=== PATIENT | male | born 1980 | race Caucasian/White ===

== ENCOUNTER 2016-12-02 02:09 | Emergency (ER) | payer OTHER ==
[~2016-12-02 02:09] MED LIST: NORTRIPTYLINE H75 MG PO; OMEPRAZOLE20 M1 PO; PERCOCET1 TA1 PO; ZOFRAN ODT4 MG PO
--- NOTE | 2016-12-02 04:25 | ED ORDER SUMMARY ---
..... Patient: MEGHAN SABA OrderSheet [facility] VisitID: [id number] [place] [address] 36y, M Registration Date/Time: 12/02/2016 ORDER SHEET Weight: 88.4 kg (stated) Allergies: Codeine, Morphine and Related GENERAL ORDERS: MEDICATION ORDERS: EMLA Cream Topical 1 application (to base of glans penis) (03:19 12/02/2016 Arthur FITZGERALD) (Ack 3:24 JQuivey R.N.) (3:36 JQuivey R.N.) IV FLUIDS: Zofran IV 4 mg (NOW) (03:01 12/02/2016 JQuivey R.N. per protocol) (3:02 JQuivey R.N.) IV Saline Lock (03:12/02/2016 JQuivey R.N. per protocol) (3:01 JQuivey R.N.) Dilaudid IV 2 mg (HIGH ALERT MEDICATION, NOW) (03:18 12/02/2016 Arthur FITZGERALD) (Ack 3:24 JQuivey R.N.) (3:35 JQuivey R.N.) Toradol IV 30 mg (NOW) (03:18 12/02/2016 Arthur FITZGERALD) (Ack 3:24 JQuivey R.N.) (3:35 JQuivey R.N.) Dilaudid IV 1 mg (HIGH ALERT MEDICATION, NOW) (04:27 12/02/2016 Arthur FITZGERALD) (4:31 JQuivey R.N.) ORDER SHEET NOTES: [Electronically signed by Sandoval Romero R.N. (05:31 12/02/2016)] [Electronically signed by Ange Fletcher MD (21:40 12/06/2016)] [Electronically locked/signed by Sandoval Romero R.N. (05:12/02/2016)]
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
--- NOTE | 2016-12-02 04:25 | ED ORDER SUMMARY ---
..... Patient: MEGHAN SABA OrderSheet [facility] VisitID: [id number] [place] [address] 36y, M Registration Date/Time: 12/02/2016 ORDER SHEET Weight: 88.4 kg (stated) Allergies: Codeine, Morphine and Related GENERAL ORDERS: MEDICATION ORDERS: EMLA Cream Topical 1 application (to base of glans penis) (03:19 12/02/2016 Arthur FITZGERALD) (Ack 3:24 JQuivey R.N.) (3:36 JQuivey R.N.) IV FLUIDS: Zofran IV 4 mg (NOW) (03:01 12/02/2016 JQuivey R.N. per protocol) (3:02 JQuivey R.N.) IV Saline Lock (03:12/02/2016 JQuivey R.N. per protocol) (3:01 JQuivey R.N.) Dilaudid IV 2 mg (HIGH ALERT MEDICATION, NOW) (03:18 12/02/2016 Arthur FITZGERALD) (Ack 3:24 JQuivey R.N.) (3:35 JQuivey R.N.) Toradol IV 30 mg (NOW) (03:18 12/02/2016 Arthur FITZGERALD) (Ack 3:24 JQuivey R.N.) (3:35 JQuivey R.N.) Dilaudid IV 1 mg (HIGH ALERT MEDICATION, NOW) (04:27 12/02/2016 Arthur FITZGERALD) (4:31 JQuivey R.N.) ORDER SHEET NOTES: [Electronically signed by Sandoval Romero R.N. (05:31 12/02/2016)] [Electronically signed by Ange Fletcher MD (21:40 12/06/2016)] [Electronically locked/signed by Sandoval Romero R.N. (05:12/02/2016)]
--- NOTE | 2016-12-06 21:41 | ED MAR SUMMARY ---
..... Medication Administration Record [facility] [address] [place] [address] Patient: MEGHAN SABA Visit ID: [id number] 36y, M Weight: 88.4 kg Height/Length: 76 in BMI: 23.7 ALLERGIES: Morphine and Related, Codeine Given 03:00 12/02/2016 Sandoval Romero R.N. Medication Administered: ZOFRAN [IVP] (ONDANSETRON HCL), Dose: 4 mg IVP over 2 minute(s), Site: #1 right AC. Medication Ordered: Zofran IV 4 mg (NOW). Given 03:30 12/02/2016 Sandoval Romero R.N. Medication Administered: DILAUDID [IVP] (HYDROMORPHONE HCL PF), Dose: 2 mg IVP over 2 minute(s), Site: #1 right AC. Medication Ordered: Dilaudid IV 2 mg (HIGH ALERT MEDICATION, NOW). Given 03:32 12/02/2016 Sandoval Romero R.N. Medication Administered: TORADOL [IVP], Dose: 30 mg IVP over 2 minute(s), Site: #1 right AC. Medication Ordered: Toradol IV 30 mg (NOW). Given 03:35 12/02/2016 Sandoval Romero R.N. Medication Administered: EMLA CREAM [TOPICAL] (LIDOCAINE-PRILOCAINE), Dose: 1 application Topical. Medication Ordered: EMLA Cream Topical 1 application (to base of glans penis). Given 04:28 12/02/2016 Sandoval Romero R.NNimisha Medication Administered: DILAUDID [IVP] (HYDROMORPHONE HCL PF), Dose: 1 mg IVP over 2 minute(s), Site: #1 right AC. Medication Ordered: Dilaudid IV 1 mg (HIGH ALERT MEDICATION, NOW).
--- NOTE | 2016-12-06 21:41 | ED MED RECONCILIATION SUMMARY ---
Patient: MEGHAN SABA Medication Reconciliation Report [facility] VisitID: [id number] [address] [place] [address] 36y, M Registration Date/Time: 12/02/2016 Weight: 88.4 kg Height/Length: 76 in. BMI: 23.7 ALLERGIES: Codeine, Morphine and Related The patient's Home Medications are listed below: CONTINUE TAKING THE FOLLOWING MEDICATIONS: Nortriptyline HCl Oral 75 mg, daily Percocet Oral 5/325 mg, 4x a day The source(s) of the original Home Medication information: patient The following Medications were given to the patient in the Emergency Department: Zofran [IVP] IVP 4 mg, administered: 12/02/2016 3:00:00 AM Dilaudid [IVP] IVP 2 mg, administered: 12/02/2016 3:30:00 AM Toradol [IVP] IVP 30 mg, administered: 12/02/2016 3:32:00 AM EMLA Cream [Topical] Topical 1 application, administered: 12/02/2016 3:35:00 AM Dilaudid [IVP] IVP 1 mg, administered: 12/02/2016 4:28:00 AM The following Medications were prescribed to the patient: Zofran (orally disintegrating tablets) 4 mg: take 1-2 orally every 6 hours as needed for nausea. Dispense ten (10). No refill. Substitution is permissible. -- Ange Fletcher MD Hydromorphone 2 mg: take 1-2 tablets orally every 6 hours as needed for pain. Dispense twenty (20). No refill. -- Ange Fletcher MD
--- NOTE | 2016-12-06 21:41 | ED MAR SUMMARY ---
..... Medication Administration Record [facility] [address] [place] [address] Patient: MEGHAN SABA Visit ID: [id number] 36y, M Weight: 88.4 kg Height/Length: 76 in BMI: 23.7 ALLERGIES: Morphine and Related, Codeine Given 03:00 12/02/2016 Sandoval Romero R.N. Medication Administered: ZOFRAN [IVP] (ONDANSETRON HCL), Dose: 4 mg IVP over 2 minute(s), Site: #1 right AC. Medication Ordered: Zofran IV 4 mg (NOW). Given 03:30 12/02/2016 Sandoval Romero R.N. Medication Administered: DILAUDID [IVP] (HYDROMORPHONE HCL PF), Dose: 2 mg IVP over 2 minute(s), Site: #1 right AC. Medication Ordered: Dilaudid IV 2 mg (HIGH ALERT MEDICATION, NOW). Given 03:32 12/02/2016 Sandoval Romero R.N. Medication Administered: TORADOL [IVP], Dose: 30 mg IVP over 2 minute(s), Site: #1 right AC. Medication Ordered: Toradol IV 30 mg (NOW). Given 03:35 12/02/2016 Sandoval Romero R.N. Medication Administered: EMLA CREAM [TOPICAL] (LIDOCAINE-PRILOCAINE), Dose: 1 application Topical. Medication Ordered: EMLA Cream Topical 1 application (to base of glans penis). Given 04:28 12/02/2016 Sandoval Romero R.NNimisha Medication Administered: DILAUDID [IVP] (HYDROMORPHONE HCL PF), Dose: 1 mg IVP over 2 minute(s), Site: #1 right AC. Medication Ordered: Dilaudid IV 1 mg (HIGH ALERT MEDICATION, NOW).
--- NOTE | 2016-12-06 21:41 | ED DISCHARGE INSTRUCTIONS ---
Patient: MEGHAN SABA General Instructions [facility] VisitID: [id number] [place] [address] 36y, M Registration Date/Time: 12/02/2016 Post-operative complication from genitourinary surgery- partial wound dehiscence. INSTRUCTIONS Drink plenty of fluids. Warnings: Further evaluation is necessary. It is very important to follow up with a physician. SEDATIVE MEDICATION: You were given sedative medication during your visit. Do not drive or operate dangerous machinery for 8 hours. GENERAL WARNINGS: Return or contact your physician immediately if your condition worsens or changes unexpectedly, if not improving as expected, or if other problems arise. Your Current Medications: CONTINUE TAKING THE FOLLOWING MEDICATIONS: Nortriptyline HCl Oral : 75 mg daily. Percocet Oral : 5/325 mg 4x a day, prn. Prescription Medications: Zofran (orally disintegrating tablets) 4 mg: take 1-2 orally every 6 hours as needed for nausea. Dispense ten (10). No refill. Substitution is permissible. Hydromorphone 2 mg: take 1-2 tablets orally every 6 hours as needed for pain. Dispense twenty (20). No refill. Follow-up: Follow up with a urologist. Call for the next available appointment. Reason for referral: Follow up wound dehiscence at circumcision site. Understanding of the discharge instructions verbalized by patient. (Electronically signed by Ange Fletcher MD 12/06/2016 21:40)
--- NOTE | 2016-12-06 21:41 | ED DISCHARGE INSTRUCTIONS ---
Patient: MEGHAN SABA General Instructions [facility] VisitID: [id number] [place] [address] 36y, M Registration Date/Time: 12/02/2016 Post-operative complication from genitourinary surgery- partial wound dehiscence. INSTRUCTIONS Drink plenty of fluids. Warnings: Further evaluation is necessary. It is very important to follow up with a physician. SEDATIVE MEDICATION: You were given sedative medication during your visit. Do not drive or operate dangerous machinery for 8 hours. GENERAL WARNINGS: Return or contact your physician immediately if your condition worsens or changes unexpectedly, if not improving as expected, or if other problems arise. Your Current Medications: CONTINUE TAKING THE FOLLOWING MEDICATIONS: Nortriptyline HCl Oral : 75 mg daily. Percocet Oral : 5/325 mg 4x a day, prn. Prescription Medications: Zofran (orally disintegrating tablets) 4 mg: take 1-2 orally every 6 hours as needed for nausea. Dispense ten (10). No refill. Substitution is permissible. Hydromorphone 2 mg: take 1-2 tablets orally every 6 hours as needed for pain. Dispense twenty (20). No refill. Follow-up: Follow up with a urologist. Call for the next available appointment. Reason for referral: Follow up wound dehiscence at circumcision site. Understanding of the discharge instructions verbalized by patient. (Electronically signed by Ange Fletcher MD 12/06/2016 21:40)
--- NOTE | 2016-12-06 21:41 | ED MED RECONCILIATION SUMMARY ---
Patient: MEGHAN SABA Medication Reconciliation Report [facility] VisitID: [id number] [address] [place] [address] 36y, M Registration Date/Time: 12/02/2016 Weight: 88.4 kg Height/Length: 76 in. BMI: 23.7 ALLERGIES: Codeine, Morphine and Related The patient's Home Medications are listed below: CONTINUE TAKING THE FOLLOWING MEDICATIONS: Nortriptyline HCl Oral 75 mg, daily Percocet Oral 5/325 mg, 4x a day The source(s) of the original Home Medication information: patient The following Medications were given to the patient in the Emergency Department: Zofran [IVP] IVP 4 mg, administered: 12/02/2016 3:00:00 AM Dilaudid [IVP] IVP 2 mg, administered: 12/02/2016 3:30:00 AM Toradol [IVP] IVP 30 mg, administered: 12/02/2016 3:32:00 AM EMLA Cream [Topical] Topical 1 application, administered: 12/02/2016 3:35:00 AM Dilaudid [IVP] IVP 1 mg, administered: 12/02/2016 4:28:00 AM The following Medications were prescribed to the patient: Zofran (orally disintegrating tablets) 4 mg: take 1-2 orally every 6 hours as needed for nausea. Dispense ten (10). No refill. Substitution is permissible. -- Ange Fletcher MD Hydromorphone 2 mg: take 1-2 tablets orally every 6 hours as needed for pain. Dispense twenty (20). No refill. -- Ange Fletcher MD
== END 2016-12-02 04:54 | disposition home or self-care (01) ==
LOC: ED SRH 02:09
DX: T81.31XA Disruption of external operation (surgical) wound, not elsewhere classified, initial encounter (principal); W51.XXXA Accidental striking against or bumped into by another person, initial encounter; Y93.89 Activity, other specified; Y99.8 Other external cause status; Y92.003 Bedroom of unspecified non-institutional (private) residence as the place of occurrence of the external cause; I10 Essential (primary) hypertension; F17.200 Nicotine dependence, unspecified, uncomplicated; Z88.5 Allergy status to narcotic agent; Z79.899 Other long term (current) drug therapy

== ENCOUNTER 2017-01-07 23:36 | Emergency (ER) | payer OTHER ==
--- NOTE | 2017-01-08 00:56 | ED CLINICAL REPORT ---
Clinical Report - Physicians/Mid Levels [facility] [address] [place] [address] 01/07/2017 23:37 Patient: MEGHAN SABA Time Seen: 00:40 Jan 08 2017. Arrived- By private vehicle. Historian- patient. CPT: ER phys charges level 3 plus (#[id number]) (also dental block). HISTORY OF PRESENT ILLNESS Chief Complaint: DENTAL PAIN. 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 Pt states that molar has been giving him dental pain for several years.). Onset. (about 1 month ago). He has had a toothache (right upper molar). and is still present. Pain described as moderate. The patient has had toothache. Similar symptoms previously: Recent medical care: Not recently seen/assessed. REVIEW OF SYSTEMS No fever, cough, difficulty breathing, chest pain or nausea. No diarrhea, abdominal pain, difficulty with urination, headache or fainting episodes. No joint pain, skin rash or enlarged lymph nodes. All systems otherwise negative, except as recorded above. PAST HISTORY See nurses notes. Medications: Nortriptyline HCl Oral 75 mg, daily. [place] Oral (Tablet 5-325 mg) 1-2 tablet, every 6 hours (prn kidney stone pain). Allergies: Codeine. Definite Moderate(hives, itching) Morphine and Related. Definite Moderate(hives). SOCIAL HISTORY Heavy tobacco smoker (cigarette)- 1 pack per day. No alcohol use or drug use. ADDITIONAL NOTES The nursing notes have been reviewed. PHYSICAL EXAM Vital Signs: 01/07/2017 23:42 BP: 163/95. HR: 98. RR: 16. O2 saturation: 98%. Temp: 98.5 F. Pain level now: 9/10. Appearance: Alert. Head: Normal external inspection. Eyes: Pupils equal, round and reactive to light. Conjunctivae and eyelids normal. ENT: Moderate dental tenderness of a single tooth (upper right second molar). Ears normal. Nose normal. Pharynx normal. Lips normal. Gums normal. Uvula midline. Neck: Trachea midline. No adenopathy. CVS: Normal heart rate and rhythm. Heart sounds normal. Pulses normal. No cardiac murmur. Respiratory: No respiratory distress. Breath sounds normal. Chest nontender. Abdomen: Soft and nontender. Skin: Normal skin color. No rash. Extremities: Extremities exhibit normal ROM. Extremities nontender. Neuro: Oriented X 3. No motor deficit. No sensory deficit. PROGRESS AND PROCEDURES Dental Nerve Block: Inferior Alveolar Block. Procedure performed on the right side. Right upper molar(s). Landmarks were identified. Total volume of 1 mL 0.5% Marcaine infiltrated using a 30-gauge needle. Patient cooperative during procedure. No complications encountered. Excellent anesthesia achieved. Patient/family counseled. Disposition: Discharged. Condition: stable. CLINICAL IMPRESSION Severe dental pain. INSTRUCTIONS Drink plenty of fluids. Warnings: Further evaluation is necessary. GENERAL WARNINGS: Return or contact your physician immediately if your condition worsens or changes unexpectedly, if not improving as expected, or if other problems arise. Your Current Medications: STOP TAKING THE FOLLOWING MEDICATIONS: [place] Oral : Tablet 5-325 mg, 1-2 tablet every 6 hours, prn kidney stone pain. CONTINUE TAKING THE FOLLOWING MEDICATIONS: Nortriptyline HCl Oral : 75 mg daily. Prescription Medications: Penicillin V 500mg: take 1 tab orally every 6 hours for 10 days. Dispense forty (40). No refill Oxycodone/APAP 5 mg/325 mg: take 1-2 tablets orally every 4 hours as needed for pain. Dispense twenty-five (25). No refill. OTC Medications: Motrin (available over the counter): take according to label instructions. Follow-up: Follow up with a dentist. Call for the next available appointment. Understanding of the discharge instructions verbalized by patient. (Electronically signed by Leandro Vázquez MD 01/10/2017 10:02)
--- NOTE | 2017-01-08 00:56 | ED NURSING NOTES ---
Clinical Report - Nurses [facility] [address] [place] [address] 01/07/2017 23:37 Patient: MEGHAN SABA TRIAGE Acuity: LEVEL 3. Chief Complaint: RIGHT UPPER TOOTHACHE. Alert. AKUA COMA SCORE: Ak[place] Coma Scale: 15- eyes open spontaneously (4); best verbal response- oriented x 4 (5); best motor response- obeys commands (6). --23:53 Sandoval Parsons R.N. 23:42 01/07/17. BP: 163/95. HR: 98. RR: 16. O2 saturation: 98%. Temp: 98.5 F (oral). Pain level now: 07/07. Additional comments: Dental Pain. --23:53 Sandoval Parsons R.N. Weight: 90.7 kg stated. Height/Length: 76 inches Per Patient. BMI: 24.3. --23:44 Sandoval Parsons R.N. Medications [place] Oral (Tablet 5-325 mg) 1-2 tablet, every 6 hours (prn kidney stone pain). --23:45 Sandoval Parsons R.N. Nortriptyline HCl Oral 75 mg, daily. --23:47 Sandoval Parsons R.N. Allergies Morphine and Related. Definite Moderate(hives) --23:46 Sandoval Parsons R.N. Codeine. Definite Moderate(hives, itching) --23:47 Sandoval Parsons R.N. History ( (R) Upper Molar Pain. Pt states that molar has been giving him dental pain for several years.). Onset. (about 1 month ago). He has had a toothache (right upper molar). 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 PAST MEDICAL HX: Immunizations: status is unknown. SOCIAL HX: Heavy tobacco smoker (cigarette)- 1 pack per day. No alcohol use or drug use. No infectious disease exposure. ABUSE ASSESSMENT: No report of abuse. FALL RISK ASSESSMENT: Fall risk assessment completed. No fall risk identified. NUTRITIONAL RISK ASSESSMENT: The nutritional risk assessment revealed no deficiencies. FUNCTIONAL ASSESSMENT: Functional assessment: no impairments noted. LEARNING NEEDS ASSESSMENT: The learning needs assessment revealed no barriers. SKIN INTEGRITY ASSESSMENT: Skin integrity risk assessment completed. No skin integrity risk identified. --23:53 Sandoval Parsons R.N. PROBLEMS: Post-Op Complications. Hypertension. Renal Colic. Acute Pain. Abdominal Pain. Weakness. Nausea. Rotator Cuff Injury. Shoulder Injury. Back Pain. --23:49 Sandoval Parsons R.N. ADDITIONAL SURGERIES: Circumcision. Inguinal Hernia Repair. Shoulder Surgery. --23:49 Sandoval Parsons R.N. Interventions ID and allergy band on patient. To treatment room. --23:53 Sandoval Parsons R.N. PHYSICAL ASSESSMENT Ambulatory to room. GENERAL / NEURO / PSYCH: Alert. Oriented X 4. Appears in pain. HEENT: Voice within normal limits. Mouth within normal limits upon inspection. Mucous membranes are pink. RESPIRATORY: Respirations not labored. CVS: Capillary refill less than 2 seconds. SKIN: Skin is warm and dry. Normal skin turgor. --23:53 Sandoval Parsons R.N. NURSING PROGRESS NOTES Reassurance given to the patient. Patient identifiers checked. Call light placed in reach. Side rails up. Bed placed in lowest position. Brakes of bed on. Patient ready for evaluation- chart flagged and ED physician notified. --23:53 Sandoval Parsons R.N. 00:35. ( Dental Block by [facility]). --01:09 Sandoval Parsons R.N. DISPOSITION / DISCHARGE 00:55 01/08/17. BP: 168/98. HR: 100. RR: 16. O2 saturation: 99% on room air. Temp: 98.4 F (oral). Pain level now: 0/10. --01:06 Sandoval Parsons R.N. Departure time: 0100. --01:06 Sandoval Parsons R.N. 01:00. Condition at departure: improved. No learning barriers present. Discharge instructions provided and reviewed with the patient. Reviewed medication(s) (prescription given to pt). Reviewed referral to a dentist. Patient verbalized understanding. Written instructions provided in Kinyarwanda. The patient was discharged by the physician. He was discharged home and unaccompanied at time of discharge. He left the Emergency Department ambulatory and via private vehicle. Patient driving. --01:07 Sandoval Parsons R.N. Locked/Released at 01/08/2017 1:10 by Sandoval Parsons R.N.
--- NOTE | 2017-01-08 00:56 | ED NURSING NOTES ---
Clinical Report - Nurses [facility] [address] [place] [address] 01/07/2017 23:37 Patient: MEGHAN SABA TRIAGE Acuity: LEVEL 3. Chief Complaint: RIGHT UPPER TOOTHACHE. Alert. AKUA COMA SCORE: [place] Coma Scale: 15- eyes open spontaneously (4); best verbal response- oriented x 4 (5); best motor response- obeys commands (6). --23:53 Sandoval Parsons R.N. 23:42 01/07/17. BP: 163/95. HR: 98. RR: 16. O2 saturation: 98%. Temp: 98.5 F (oral). Pain level now: 07/07. Additional comments: Dental Pain. --23:53 Sandoval Parsons R.N. Weight: 90.7 kg stated. Height/Length: 76 inches Per Patient. BMI: 24.3. --23:44 Sandoval Parsons R.N. Medications [place] Oral (Tablet 5-325 mg) 1-2 tablet, every 6 hours (prn kidney stone pain). --23:45 Sandoval Parsons R.N. Nortriptyline HCl Oral 75 mg, daily. --23:47 Sandoval Parsons R.N. Allergies Morphine and Related. Definite Moderate(hives) --23:46 Sandoval Parsons R.N. Codeine. Definite Moderate(hives, itching) --23:47 Sandoval Parsons R.N. History ( (R) Upper Molar Pain. Pt states that molar has been giving him dental pain for several years.). Onset. (about 1 month ago). He has had a toothache (right upper molar). 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 PAST MEDICAL HX: Immunizations: status is unknown. SOCIAL HX: Heavy tobacco smoker (cigarette)- 1 pack per day. No alcohol use or drug use. No infectious disease exposure. ABUSE ASSESSMENT: No report of abuse. FALL RISK ASSESSMENT: Fall risk assessment completed. No fall risk identified. NUTRITIONAL RISK ASSESSMENT: The nutritional risk assessment revealed no deficiencies. FUNCTIONAL ASSESSMENT: Functional assessment: no impairments noted. LEARNING NEEDS ASSESSMENT: The learning needs assessment revealed no barriers. SKIN INTEGRITY ASSESSMENT: Skin integrity risk assessment completed. No skin integrity risk identified. --23:53 Sandoval Parsons R.N. PROBLEMS: Post-Op Complications. Hypertension. Renal Colic. Acute Pain. Abdominal Pain. Weakness. Nausea. Rotator Cuff Injury. Shoulder Injury. Back Pain. --23:49 Sandoval Parsons R.N. ADDITIONAL SURGERIES: Circumcision. Inguinal Hernia Repair. Shoulder Surgery. --23:49 Sandoval Parsons R.N. Interventions ID and allergy band on patient. To treatment room. --23:53 Sandoval Parsons R.N. PHYSICAL ASSESSMENT Ambulatory to room. GENERAL / NEURO / PSYCH: Alert. Oriented X 4. Appears in pain. HEENT: Voice within normal limits. Mouth within normal limits upon inspection. Mucous membranes are pink. RESPIRATORY: Respirations not labored. CVS: Capillary refill less than 2 seconds. SKIN: Skin is warm and dry. Normal skin turgor. --23:53 Sandoval Parsons R.N. NURSING PROGRESS NOTES Reassurance given to the patient. Patient identifiers checked. Call light placed in reach. Side rails up. Bed placed in lowest position. Brakes of bed on. Patient ready for evaluation- chart flagged and ED physician notified. --23:53 Sandoval Parsons R.N. 00:35. ( Dental Block by [facility]). --01:09 Sandoval Parsons R.N. DISPOSITION / DISCHARGE 00:55 01/08/17. BP: 168/98. HR: 100. RR: 16. O2 saturation: 99% on room air. Temp: 98.4 F (oral). Pain level now: 0/10. --01:06 Sandoval Parsons R.N. Departure time: 0100. --01:06 Sandoval Parosns R.N. 01:00. Condition at departure: improved. No learning barriers present. Discharge instructions provided and reviewed with the patient. Reviewed medication(s) (prescription given to pt). Reviewed referral to a dentist. Patient verbalized understanding. Written instructions provided in Azeri. The patient was discharged by the physician. He was discharged home and unaccompanied at time of discharge. He left the Emergency Department ambulatory and via private vehicle. Patient driving. --01:07 Sandoval Parsons R.N. Locked/Released at 01/08/2017 1:10 by Sandoval Parsons R.N.
--- NOTE | 2017-01-08 00:56 | ED CLINICAL REPORT ---
Clinical Report - Physicians/Mid Levels [facility] [address] [place] [address] 01/07/2017 23:37 Patient: MEGHAN SABA Time Seen: 00:40 Jan 08 2017. Arrived- By private vehicle. Historian- patient. CPT: ER phys charges level 3 plus (#141984) (also dental block). HISTORY OF PRESENT ILLNESS Chief Complaint: DENTAL PAIN. 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 Pt states that molar has been giving him dental pain for several years.). Onset. (about 1 month ago). He has had a toothache (right upper molar). and is still present. Pain described as moderate. The patient has had toothache. Similar symptoms previously: Recent medical care: Not recently seen/assessed. REVIEW OF SYSTEMS No fever, cough, difficulty breathing, chest pain or nausea. No diarrhea, abdominal pain, difficulty with urination, headache or fainting episodes. No joint pain, skin rash or enlarged lymph nodes. All systems otherwise negative, except as recorded above. PAST HISTORY See nurses notes. Medications: Nortriptyline HCl Oral 75 mg, daily. [place] Oral (Tablet 5-325 mg) 1-2 tablet, every 6 hours (prn kidney stone pain). Allergies: Codeine. Definite Moderate(hives, itching) Morphine and Related. Definite Moderate(hives). SOCIAL HISTORY Heavy tobacco smoker (cigarette)- 1 pack per day. No alcohol use or drug use. ADDITIONAL NOTES The nursing notes have been reviewed. PHYSICAL EXAM Vital Signs: 01/07/2017 23:42 BP: 163/95. HR: 98. RR: 16. O2 saturation: 98%. Temp: 98.5 F. Pain level now: 9/10. Appearance: Alert. Head: Normal external inspection. Eyes: Pupils equal, round and reactive to light. Conjunctivae and eyelids normal. ENT: Moderate dental tenderness of a single tooth (upper right second molar). Ears normal. Nose normal. Pharynx normal. Lips normal. Gums normal. Uvula midline. Neck: Trachea midline. No adenopathy. CVS: Normal heart rate and rhythm. Heart sounds normal. Pulses normal. No cardiac murmur. Respiratory: No respiratory distress. Breath sounds normal. Chest nontender. Abdomen: Soft and nontender. Skin: Normal skin color. No rash. Extremities: Extremities exhibit normal ROM. Extremities nontender. Neuro: Oriented X 3. No motor deficit. No sensory deficit. PROGRESS AND PROCEDURES Dental Nerve Block: Inferior Alveolar Block. Procedure performed on the right side. Right upper molar(s). Landmarks were identified. Total volume of 1 mL 0.5% Marcaine infiltrated using a 30-gauge needle. Patient cooperative during procedure. No complications encountered. Excellent anesthesia achieved. Patient/family counseled. Disposition: Discharged. Condition: stable. CLINICAL IMPRESSION Severe dental pain. INSTRUCTIONS Drink plenty of fluids. Warnings: Further evaluation is necessary. GENERAL WARNINGS: Return or contact your physician immediately if your condition worsens or changes unexpectedly, if not improving as expected, or if other problems arise. Your Current Medications: STOP TAKING THE FOLLOWING MEDICATIONS: [place] Oral : Tablet 5-325 mg, 1-2 tablet every 6 hours, prn kidney stone pain. CONTINUE TAKING THE FOLLOWING MEDICATIONS: Nortriptyline HCl Oral : 75 mg daily. Prescription Medications: Penicillin V 500mg: take 1 tab orally every 6 hours for 10 days. Dispense forty (40). No refill Oxycodone/APAP 5 mg/325 mg: take 1-2 tablets orally every 4 hours as needed for pain. Dispense twenty-five (25). No refill. OTC Medications: Motrin (available over the counter): take according to label instructions. Follow-up: Follow up with a dentist. Call for the next available appointment. Understanding of the discharge instructions verbalized by patient. (Electronically signed by Leandro Vázquez MD 01/10/2017 10:02)
--- NOTE | 2017-01-10 10:02 | ED MAR SUMMARY ---
..... Medication Administration Record [facility] [address] [place], [place] [id number] Patient: MEGHAN SABA Visit ID: [id number] 36y, M Weight: 90.7 kg Height/Length: 76 in BMI: 24.3 ALLERGIES: Codeine, Morphine and Related
--- NOTE | 2017-01-10 10:02 | ED MAR SUMMARY ---
..... Medication Administration Record [facility] [address] [place], [place] [id number] Patient: MEGHAN SABA Visit ID: [id number] 36y, M Weight: 90.7 kg Height/Length: 76 in BMI: 24.3 ALLERGIES: Codeine, Morphine and Related
--- NOTE | 2017-01-10 10:02 | ED DISCHARGE INSTRUCTIONS ---
Patient: MEGHAN SABA General Instructions [facility] VisitID: [id number] [address] [place] [address] 36y, M Registration Date/Time: 01/07/2017 Severe dental pain. INSTRUCTIONS Drink plenty of fluids. Warnings: Further evaluation is necessary. GENERAL WARNINGS: Return or contact your physician immediately if your condition worsens or changes unexpectedly, if not improving as expected, or if other problems arise. Your Current Medications: STOP TAKING THE FOLLOWING MEDICATIONS: [place] Oral : Tablet 5-325 mg, 1-2 tablet every 6 hours, prn kidney stone pain. CONTINUE TAKING THE FOLLOWING MEDICATIONS: Nortriptyline HCl Oral : 75 mg daily. Prescription Medications: Penicillin V 500mg: take 1 tab orally every 6 hours for 10 days. Dispense forty (40). No refill Oxycodone/APAP 5 mg/325 mg: take 1-2 tablets orally every 4 hours as needed for pain. Dispense twenty-five (25). No refill. OTC Medications: Motrin (available over the counter): take according to label instructions. Follow-up: Follow up with a dentist. Call for the next available appointment. Understanding of the discharge instructions verbalized by patient. ADDITIONAL INFORMATION Dental Pain A crack or cavity in the tooth, which exposes the sensitive inner area of the tooth can cause tooth pain. An infection in the gum or the root of the tooth can cause pain and swelling. The pain is often made worse by drinking hot or cold fluids, or biting on hard foods. Pain may spread from the tooth to the ear or jaw on the same side. Home Care: Avoid hot and cold foods and liquids since your tooth may be sensitive to temperature changes. If your tooth is chipped or cracked, or if there is a large open cavity, apply OIL OF CLOVES (available kzdb-gvq-njcdctr in drug stores) directly to the tooth to reduce pain. Some pharmacies carry an cgrw-pxd-qypyvwk "toothache kit." This contains a paste, which can be applied over the exposed tooth to decrease sensitivity. A cold pack on your jaw over the sore area may help reduce pain. You may use acetaminophen (Tylenol) or ibuprofen (Motrin, Advil) to control pain, unless another medicine was prescribed. [ NOTE: If you have chronic liver or kidney disease or ever had a stomach ulcer or GI bleeding, talk with your doctor before using these medicines.] If you have signs of an infection, an antibiotic will be given. Take it as directed. Follow-Up as directed with a dentist. Your pain may go away with the treatment given. However, only a dentist can fully evaluate and treat the cause and prevent the pain from coming back again. TOOTHACHE IS A SIGN OF DISEASE IN YOUR TOOTH AND SHOULD BE EXAMINED AND TREATED BY A DENTIST. Get Prompt Medical Attention if any of the following occur: Your face becomes swollen or red Pain worsens or spreads to the neck Fever over 100.4 F (38.0 C) Unusual drowsiness; headache or stiff neck; weakness or fainting Pus drains from the tooth Difficulty swallowing or breathing Dental Abscess A dental abscess is an infection of the tooth socket. It often starts with a crack or cavity in the tooth. A pocket of pus forms between the tooth and the bone. The infection causes pain and swelling of the gum, cheek or jaw. The pain is often made worse by drinking hot or cold fluids, or biting on hard foods. Pain may be felt in the facial sinus or in the ear. A severe infection can interfere with swallowing and breathing. In the emergency department or clinic, you will be started on an antibiotic. However, final treatment requires drainage of the pus. This can be done by removing the tooth or performing a root canal. A root canal is done by an oral surgeon and involves drilling an opening in the tooth to drain the pus. After the infection has healed, a crown is placed over the tooth. Home care The following guidelines will help you care for your abscess at home: Avoid hot and cold foods and liquids since your tooth may be sensitive to temperature changes. If your tooth is chipped or cracked, or if there is a large open cavity, applyoil of cloves(available dssw-yle-fmzqoas in drug stores) directly to the tooth to reduce pain. Some pharmacies carry an mkkb-cxj-ckzjatj "toothache kit". This contains oil of cloves and a paste, which can be applied over the exposed tooth to decrease sensitivity. Apply an ice pack (ice cubes in a plastic bag, wrapped in a towel) over the injured area for 20 minutes every 12 hours the first day for pain relief. Continue this 34 times a day until the pain and swelling goes away. You may use acetaminophen or ibuprofen to control pain, unless another medicine was prescribed. If you have chronic liver or kidney disease or ever had a stomach ulcer or GI bleeding, talk with your doctor before using these medicines. An antibiotic will be prescribed. Take it as directed until completed, even if you are feeling better sooner. Follow-up care Follow up as directed with a dentist or oral surgeon. Even though your pain may improve with the treatment given today, only a dentist or oral surgeon can provide full treatment for this problem. When to seek medical care Get prompt medical attention or contact your doctor if any of the following occur: Your face or eyelid becomes swollen or red Pain worsens or spreads to the neck Fever over 100.4F (38.0C) Unusual drowsiness; headache or stiff neck; weakness, or fainting Pus drains from the gum or tooth Difficulty talking, swallowing or breathing Unable to open your mouth wide Oxycodone Hydrochloride, Acetaminophen Oral tablet What is this medicine? ACETAMINOPHEN; OXYCODONE (a set a MADDISON raj fen; ox i KOE done) is a pain reliever. It is used to treat mild to moderate pain. How should I use this medicine? Take this medicine by mouth with a full glass of water. Follow the directions on the prescription label. Take your medicine at regular intervals. Do not take your medicine more often than directed. Talk to your yeast maker regarding the use of this medicine in children. Special care may be needed. Patients over 65 years old may have a stronger reaction and need a smaller dose. What side effects may I notice from receiving this medicine? Side effects that you should report to your doctor or health respiratory care practitioner as soon as possible: allergic reactions like skin rash, itching or hives, swelling of the face, lips, or tongue breathing difficulties, wheezing confusion light headedness or fainting spells severe stomach pain yellowing of the skin or the whites of the eyes Side effects that usually do not require medical attention (report to your doctor or health respiratory care practitioner if they continue or are bothersome): dizziness drowsiness nausea vomiting What may interact with this medicine? alcohol antihistamines barbiturates like amobarbital, butalbital, butabarbital, methohexital, pentobarbital, phenobarbital, thiopental, and secobarbital benztropine drugs for bladder problems like solifenacin, trospium, oxybutynin, tolterodine, hyoscyamine, and methscopolamine drugs for breathing problems like ipratropium and tiotropium drugs for certain stomach or intestine problems like propantheline, homatropine methylbromide, glycopyrrolate, atropine, belladonna, and dicyclomine general anesthetics like etomidate, ketamine, nitrous oxide, propofol, desflurane, enflurane, halothane, isoflurane, and sevoflurane medicines for depression, anxiety, or psychotic disturbances medicines for sleep muscle relaxants naltrexone narcotic medicines (opiates) for pain phenothiazines like perphenazine, thioridazine, chlorpromazine, mesoridazine, fluphenazine, prochlorperazine, promazine, and trifluoperazine scopolamine tramadol trihexyphenidyl What if I miss a dose? If you miss a dose, take it as soon as you can. If it is almost time for your next dose, take only that dose. Do not take double or extra doses. Where should I keep my medicine? Keep out of the reach of children. This medicine can be abused. Keep your medicine in a safe place to protect it from theft. Do not share this medicine with anyone. Selling or giving away this medicine is dangerous and against the law. Store at room temperature between 20 and 25 degrees C (68 and 77 degrees F). Keep container tightly closed. Protect from light. This medicine may cause accidental overdose and if it is taken by other adults, children, or pets. Flush any unused medicine down the toilet to reduce the chance of harm. Do not use the medicine after the expiration date. What should I tell my health care provider before I take this medicine? They need to know if you have any of these conditions: brain tumor Crohn's disease, inflammatory bowel disease, or ulcerative colitis drink more than 3 alcohol containing drinks per day drug abuse or addiction head injury heart or circulation problems kidney disease or problems going to the bathroom liver disease lung disease, asthma, or breathing problems an unusual or allergic reaction to acetaminophen, oxycodone, other opioid analgesics, other medicines, foods, dyes, or preservatives or trying to get breast-feeding What should I watch for while using this medicine? Tell your doctor or health respiratory care practitioner if your pain does not go away, if it gets worse, or if you have new or a different type of pain. You may develop tolerance to the medicine. Tolerance means that you will need a higher dose of the medication for pain relief. Tolerance is normal and is expected if you take this medicine for a long time. Do not suddenly stop taking your medicine because you may develop a severe reaction. Your body becomes used to the medicine. This does NOT mean you are addicted. Addiction is a behavior related to getting and using a drug for a non-medical reason. If you have pain, you have a medical reason to take pain medicine. Your doctor will tell you how much medicine to take. If your doctor wants you to stop the medicine, the dose will be slowly lowered over time to avoid any side effects. You may get drowsy or dizzy. Do not drive, use machinery, or do anything that needs mental alertness until you know how this medicine affects you. Do not stand or sit up quickly, especially if you are an older patient. This reduces the risk of dizzy or fainting spells. Alcohol may interfere with the effect of this medicine. Avoid alcoholic drinks. There are different types of narcotic medicines (opiates) for pain. If you take more than one type at the same time, you may have more side effects. Give your health care provider a list of all medicines you use. Your doctor will tell you how much medicine to take. Do not take more medicine than directed. Call emergency for help if you have problems breathing. The medicine will cause constipation. Try to have a bowel movement at least every 2 to 3 days. If you do not have a bowel movement for 3 days, call your doctor or health respiratory care practitioner. Do not take Tylenol (acetaminophen) or medicines that have acetaminophen with this medicine. Too much acetaminophen can be very dangerous. Many nonprescription medicines contain acetaminophen. Always read the labels carefully to avoid taking more acetaminophen. You have been given the following additional information: Dental Pain Tooth Abscess Oxycodone Hydrochloride, Acetaminophen Oral tablet (Electronically signed by Leandro Vázquez MD 01/10/2017 10:02)
--- NOTE | 2017-01-10 10:02 | ED DISCHARGE INSTRUCTIONS ---
Patient: MEGHAN SABA General Instructions [facility] VisitID: [id number] [address] [place] [address] 36y, M Registration Date/Time: 01/07/2017 Severe dental pain. INSTRUCTIONS Drink plenty of fluids. Warnings: Further evaluation is necessary. GENERAL WARNINGS: Return or contact your physician immediately if your condition worsens or changes unexpectedly, if not improving as expected, or if other problems arise. Your Current Medications: STOP TAKING THE FOLLOWING MEDICATIONS: [place] Oral : Tablet 5-325 mg, 1-2 tablet every 6 hours, prn kidney stone pain. CONTINUE TAKING THE FOLLOWING MEDICATIONS: Nortriptyline HCl Oral : 75 mg daily. Prescription Medications: Penicillin V 500mg: take 1 tab orally every 6 hours for 10 days. Dispense forty (40). No refill Oxycodone/APAP 5 mg/325 mg: take 1-2 tablets orally every 4 hours as needed for pain. Dispense twenty-five (25). No refill. OTC Medications: Motrin (available over the counter): take according to label instructions. Follow-up: Follow up with a dentist. Call for the next available appointment. Understanding of the discharge instructions verbalized by patient. ADDITIONAL INFORMATION Dental Pain A crack or cavity in the tooth, which exposes the sensitive inner area of the tooth can cause tooth pain. An infection in the gum or the root of the tooth can cause pain and swelling. The pain is often made worse by drinking hot or cold fluids, or biting on hard foods. Pain may spread from the tooth to the ear or jaw on the same side. Home Care: Avoid hot and cold foods and liquids since your tooth may be sensitive to temperature changes. If your tooth is chipped or cracked, or if there is a large open cavity, apply OIL OF CLOVES (available wqka-xut-rllnygm in drug stores) directly to the tooth to reduce pain. Some pharmacies carry an mnlm-gpd-grkzenb "toothache kit." This contains a paste, which can be applied over the exposed tooth to decrease sensitivity. A cold pack on your jaw over the sore area may help reduce pain. You may use acetaminophen (Tylenol) or ibuprofen (Motrin, Advil) to control pain, unless another medicine was prescribed. [ NOTE: If you have chronic liver or kidney disease or ever had a stomach ulcer or GI bleeding, talk with your doctor before using these medicines.] If you have signs of an infection, an antibiotic will be given. Take it as directed. Follow-Up as directed with a dentist. Your pain may go away with the treatment given. However, only a dentist can fully evaluate and treat the cause and prevent the pain from coming back again. TOOTHACHE IS A SIGN OF DISEASE IN YOUR TOOTH AND SHOULD BE EXAMINED AND TREATED BY A DENTIST. Get Prompt Medical Attention if any of the following occur: Your face becomes swollen or red Pain worsens or spreads to the neck Fever over 100.4 F (38.0 C) Unusual drowsiness; headache or stiff neck; weakness or fainting Pus drains from the tooth Difficulty swallowing or breathing Dental Abscess A dental abscess is an infection of the tooth socket. It often starts with a crack or cavity in the tooth. A pocket of pus forms between the tooth and the bone. The infection causes pain and swelling of the gum, cheek or jaw. The pain is often made worse by drinking hot or cold fluids, or biting on hard foods. Pain may be felt in the facial sinus or in the ear. A severe infection can interfere with swallowing and breathing. In the emergency department or clinic, you will be started on an antibiotic. However, final treatment requires drainage of the pus. This can be done by removing the tooth or performing a root canal. A root canal is done by an oral surgeon and involves drilling an opening in the tooth to drain the pus. After the infection has healed, a crown is placed over the tooth. Home care The following guidelines will help you care for your abscess at home: Avoid hot and cold foods and liquids since your tooth may be sensitive to temperature changes. If your tooth is chipped or cracked, or if there is a large open cavity, applyoil of cloves(available cngv-cez-lefkucc in drug stores) directly to the tooth to reduce pain. Some pharmacies carry an jhoa-fiu-jttvyte "toothache kit". This contains oil of cloves and a paste, which can be applied over the exposed tooth to decrease sensitivity. Apply an ice pack (ice cubes in a plastic bag, wrapped in a towel) over the injured area for 20 minutes every 12 hours the first day for pain relief. Continue this 34 times a day until the pain and swelling goes away. You may use acetaminophen or ibuprofen to control pain, unless another medicine was prescribed. If you have chronic liver or kidney disease or ever had a stomach ulcer or GI bleeding, talk with your doctor before using these medicines. An antibiotic will be prescribed. Take it as directed until completed, even if you are feeling better sooner. Follow-up care Follow up as directed with a dentist or oral surgeon. Even though your pain may improve with the treatment given today, only a dentist or oral surgeon can provide full treatment for this problem. When to seek medical care Get prompt medical attention or contact your doctor if any of the following occur: Your face or eyelid becomes swollen or red Pain worsens or spreads to the neck Fever over 100.4F (38.0C) Unusual drowsiness; headache or stiff neck; weakness, or fainting Pus drains from the gum or tooth Difficulty talking, swallowing or breathing Unable to open your mouth wide Oxycodone Hydrochloride, Acetaminophen Oral tablet What is this medicine? ACETAMINOPHEN; OXYCODONE (a set a MADDISON raj fen; ox i KOE done) is a pain reliever. It is used to treat mild to moderate pain. How should I use this medicine? Take this medicine by mouth with a full glass of water. Follow the directions on the prescription label. Take your medicine at regular intervals. Do not take your medicine more often than directed. Talk to your thermoforming operator regarding the use of this medicine in children. Special care may be needed. Patients over 65 years old may have a stronger reaction and need a smaller dose. What side effects may I notice from receiving this medicine? Side effects that you should report to your doctor or health adult care provider as soon as possible: allergic reactions like skin rash, itching or hives, swelling of the face, lips, or tongue breathing difficulties, wheezing confusion light headedness or fainting spells severe stomach pain yellowing of the skin or the whites of the eyes Side effects that usually do not require medical attention (report to your doctor or health adult care provider if they continue or are bothersome): dizziness drowsiness nausea vomiting What may interact with this medicine? alcohol antihistamines barbiturates like amobarbital, butalbital, butabarbital, methohexital, pentobarbital, phenobarbital, thiopental, and secobarbital benztropine drugs for bladder problems like solifenacin, trospium, oxybutynin, tolterodine, hyoscyamine, and methscopolamine drugs for breathing problems like ipratropium and tiotropium drugs for certain stomach or intestine problems like propantheline, homatropine methylbromide, glycopyrrolate, atropine, belladonna, and dicyclomine general anesthetics like etomidate, ketamine, nitrous oxide, propofol, desflurane, enflurane, halothane, isoflurane, and sevoflurane medicines for depression, anxiety, or psychotic disturbances medicines for sleep muscle relaxants naltrexone narcotic medicines (opiates) for pain phenothiazines like perphenazine, thioridazine, chlorpromazine, mesoridazine, fluphenazine, prochlorperazine, promazine, and trifluoperazine scopolamine tramadol trihexyphenidyl What if I miss a dose? If you miss a dose, take it as soon as you can. If it is almost time for your next dose, take only that dose. Do not take double or extra doses. Where should I keep my medicine? Keep out of the reach of children. This medicine can be abused. Keep your medicine in a safe place to protect it from theft. Do not share this medicine with anyone. Selling or giving away this medicine is dangerous and against the law. Store at room temperature between 20 and 25 degrees C (68 and 77 degrees F). Keep container tightly closed. Protect from light. This medicine may cause accidental overdose and if it is taken by other adults, children, or pets. Flush any unused medicine down the toilet to reduce the chance of harm. Do not use the medicine after the expiration date. What should I tell my health care provider before I take this medicine? They need to know if you have any of these conditions: brain tumor Crohn's disease, inflammatory bowel disease, or ulcerative colitis drink more than 3 alcohol containing drinks per day drug abuse or addiction head injury heart or circulation problems kidney disease or problems going to the bathroom liver disease lung disease, asthma, or breathing problems an unusual or allergic reaction to acetaminophen, oxycodone, other opioid analgesics, other medicines, foods, dyes, or preservatives or trying to get breast-feeding What should I watch for while using this medicine? Tell your doctor or health adult care provider if your pain does not go away, if it gets worse, or if you have new or a different type of pain. You may develop tolerance to the medicine. Tolerance means that you will need a higher dose of the medication for pain relief. Tolerance is normal and is expected if you take this medicine for a long time. Do not suddenly stop taking your medicine because you may develop a severe reaction. Your body becomes used to the medicine. This does NOT mean you are addicted. Addiction is a behavior related to getting and using a drug for a non-medical reason. If you have pain, you have a medical reason to take pain medicine. Your doctor will tell you how much medicine to take. If your doctor wants you to stop the medicine, the dose will be slowly lowered over time to avoid any side effects. You may get drowsy or dizzy. Do not drive, use machinery, or do anything that needs mental alertness until you know how this medicine affects you. Do not stand or sit up quickly, especially if you are an older patient. This reduces the risk of dizzy or fainting spells. Alcohol may interfere with the effect of this medicine. Avoid alcoholic drinks. There are different types of narcotic medicines (opiates) for pain. If you take more than one type at the same time, you may have more side effects. Give your health care provider a list of all medicines you use. Your doctor will tell you how much medicine to take. Do not take more medicine than directed. Call emergency for help if you have problems breathing. The medicine will cause constipation. Try to have a bowel movement at least every 2 to 3 days. If you do not have a bowel movement for 3 days, call your doctor or health adult care provider. Do not take Tylenol (acetaminophen) or medicines that have acetaminophen with this medicine. Too much acetaminophen can be very dangerous. Many nonprescription medicines contain acetaminophen. Always read the labels carefully to avoid taking more acetaminophen. You have been given the following additional information: Dental Pain Tooth Abscess Oxycodone Hydrochloride, Acetaminophen Oral tablet (Electronically signed by Leandro Vázquez MD 01/10/2017 10:02)
--- NOTE | 2017-01-10 10:02 | ED MED RECONCILIATION SUMMARY ---
Patient: MEGHAN SABA Medication Reconciliation Report [facility] VisitID: [id number] [address] [place] [address] 36y, M Registration Date/Time: 01/07/2017 Weight: 90.7 kg Height/Length: 76 in. BMI: 24.3 ALLERGIES: Codeine, Morphine and Related The patient's Home Medications are listed below: STOP TAKING THE FOLLOWING MEDICATIONS: [place] Oral (5-325 mg) 1-2 tablet, every 6 hours, prn kidney stone pain CONTINUE TAKING THE FOLLOWING MEDICATIONS: Nortriptyline HCl Oral 75 mg, daily The source(s) of the original Home Medication information: Not obtained. The following Medications were given to the patient in the Emergency Department: None. The following Medications were prescribed to the patient: Motrin (available over the counter): take according to label instructions. -- Leandro Vázquez MD Penicillin V 500mg: take 1 tab orally every 6 hours for 10 days. Dispense forty (40). No refill -- Leandro Vázquez MD Oxycodone/APAP 5 mg/325 mg: take 1-2 tablets orally every 4 hours as needed for pain. Dispense twenty-five (25). No refill. -- Leandro Vázquez MD
--- NOTE | 2017-01-10 10:02 | ED MED RECONCILIATION SUMMARY ---
Patient: MEGHAN SABA Medication Reconciliation Report [facility] VisitID: [id number] [address] [place] [address] 36y, M Registration Date/Time: 01/07/2017 Weight: 90.7 kg Height/Length: 76 in. BMI: 24.3 ALLERGIES: Codeine, Morphine and Related The patient's Home Medications are listed below: STOP TAKING THE FOLLOWING MEDICATIONS: [place] Oral (5-325 mg) 1-2 tablet, every 6 hours, prn kidney stone pain CONTINUE TAKING THE FOLLOWING MEDICATIONS: Nortriptyline HCl Oral 75 mg, daily The source(s) of the original Home Medication information: Not obtained. The following Medications were given to the patient in the Emergency Department: None. The following Medications were prescribed to the patient: Motrin (available over the counter): take according to label instructions. -- Leandro Vázquez MD Penicillin V 500mg: take 1 tab orally every 6 hours for 10 days. Dispense forty (40). No refill -- Leandro Vázquez MD Oxycodone/APAP 5 mg/325 mg: take 1-2 tablets orally every 4 hours as needed for pain. Dispense twenty-five (25). No refill. -- Leandro Vázquez MD
== END 2017-01-08 01:00 | disposition home or self-care (01) ==
LOC: ED SRH 23:36
DX: K08.89 Other specified disorders of teeth and supporting structures (principal); F17.210 Nicotine dependence, cigarettes, uncomplicated; Z79.891 Long term (current) use of opiate analgesic; Z79.899 Other long term (current) drug therapy; Z88.5 Allergy status to narcotic agent

== ENCOUNTER 2017-01-14 23:23 | Emergency (ER) | payer OTHER ==
--- NOTE | 2017-01-15 03:07 | ED CLINICAL REPORT ---
Clinical Report - Physicians/Mid Levels [facility] [address] [place] [address] 01/14/2017 23:23 Patient: MEGHAN SABA Time Seen: 01:39. Arrived- By private vehicle. Historian- patient. HISTORY OF PRESENT ILLNESS Chief Complaint: FLANK PAIN. At its maximum, severity described as severe. When seen in the E.D., it was almost gone. Modifying factors. Not worsened by change in position. Not worsened by anything. Not relieved by anything. This started 7 days ago, worse for the last several days.; Can't find a comfortable position. and is still present and worsening. It is described as "pain" and feels like prior kidney stone. and it is described as located in the right flank. No nausea, vomiting or diarrhea. (No incontinence, numbness or weakness.). Similar symptoms previously: Several times. ( Pt believes that it was L ureteral colic. Review of those visits shows only L intra renal stones.). REVIEW OF SYSTEMS No constipation, black stools, difficulty with urination, pain with urination or urinary frequency. No fever, headache, sore throat, chest pain or difficulty breathing. No cough. No scrotal pain. PAST HISTORY PCP: Dr Tamar Storm - appt next week. ADDITIONAL SURGERIES: Circumcision. Inguinal Hernia Repair. Shoulder Surgery. ADDITIONAL NOTES The nursing notes have been reviewed. PHYSICAL EXAM Vital Signs: 01/15/2017 03:00 BP: 151/90. HR: 93. RR: 20. O2 saturation: 97%. 01/15/2017 02:00 O2 saturation: 97%. 01/15/2017 01:20 BP: 159/88. HR: 98. RR: 15. O2 saturation: 99%. Temp: 98.6 F. Pain level now: 7/10. Appearance: Alert. No acute distress. Eyes: Eyes normal inspection. ENT: Pharynx normal. Neck: Normal inspection. CVS: Heart sounds normal. Respiratory: No respiratory distress. Breath sounds normal. Chest nontender. Abdomen: Soft and nontender. No mass. Back: Mild CVA tenderness on the right. : Normal genitalia. Testes descended. No tenderness present or scrotal swelling. Skin: Skin warm. Normal skin color. No rash. Extremities: Extremities exhibit normal ROM. No lower extremity edema. Neuro: Oriented X 3. No motor deficit. LABS, X-RAYS, AND EKG KUB: (No large R sided stone in urinary tract. /RR PROCEDURE: XR ABDOMEN 1 VIEW INDICATION: R FLANK PAIN TECHNIQUE: Single view supine abdomen. COMPARISON: CT 10/16/2016 FINDINGS: No free intraperitoneal air. Nonspecific, nonobstructive bowel gas pattern. No suspicious mass, mass effect, or calcifications. The visible osseous structures are intact. IMPRESSION: 1. Normal single view abdomen. 2. Specifically, no visible urinary calculi. Dictated by: ALEXANDRA TRENT MD D: HAL;01/15/1704 <Electronically signed by ALEXANDRA TRENT MD in OV> 01/15/17 0805). The X-rays were independently viewed by me and interpreted by the radiologist. Laboratory Tests: UA-Culture if indicated: (MAURI: 01/15/2017 02:25) ( MsgRcvd 01/15/2017 03:07) Final results Test Result Flag Units (Reference) URINE COLOR YELLOW URINE APPEARANCE CLEAR URINE GLUCOSE NEGATIVE (NEGATIVE) URINE BILIRUBIN NEGATIVE (NEGATIVE) URINE KETONE NEGATIVE (NEGATIVE) URINE SPECIFIC GRAVITY 1.010 (1.010-1.030) URINE PH 8.0 (5.0-8.0) URINE PROTEIN NEGATIVE (NEGATIVE) URINE UROBILINOGEN 0.2 EU/dL (0.2-1.0) URINE NITRITE NEGATIVE (NEGATIVE) URINE BLOOD NEGATIVE (NEGATIVE) URINE LEUK ESTERASE NEGATIVE (NEGATIVE) URINE RBC 0-1 rbc/hpf (0-1) URINE WBC 0-1 wbc/hpf (0-1) URINE EPITHELIAL CELLS 0-1 EPI/hpf (0-5) URINE BACTERIA NONE SEEN (NONE SEEN) URINE COMMENT CULT NOT INDICATED URINE CULTURES ARE SET-UP BASED ON THE FOLLOWING CRITERIA:POSITIVE NITRITEPOSITIVE LEUKOCYTE ESTERASEGREATER THAN 10 WHITE BLOOD CELLSMODERATE (2+) OR GREATER BACTERIA . PROGRESS AND PROCEDURES Course of Care: More likely musculoskeletal than renal colic though both are possible. No neurosurgical emergency no urologic emergency. Lack of worsening with movement does not support musculoskeletal etiology but there is not strong support of renal colic either. Disposition: Discharged. Condition: good. CLINICAL IMPRESSION Back pain. Possible renal colic. INSTRUCTIONS (I DID NOT SEE ANY LARGE R SIDED STONE I AM NOT SURE THAT THIS IS A KIDNEY STONE IMMEDIATE RECHECK FOR UNCONTROLLED PAIN OF TEMP OVER 100 TAKE IBUPROFEN OR SIMILAR ON A SCHEDULE KEEP YOUR APPOINTMENT WITH DR DONAHUE.). Prescription Medications: Oxycodone/APAP 5 mg/325 mg: take 1-2 tablets orally every 4 hours as needed for pain. Dispense fifteen (15). No refill. Flomax 0.4 mg: take 1 orally every 24 hours. Dispense fifteen (15). No refills. Substitution is permissible. (Electronically signed by Vivek Blood MD 01/15/2017 22:29)
--- NOTE | 2017-01-15 03:07 | ED ORDER SUMMARY ---
..... Patient: MEGHAN SABA OrderSheet [facility] VisitID: [id number] [address] [place] [address] 36y, M Registration Date/Time: 01/14/2017 ORDER SHEET Weight: 90.7 kg (stated) Allergies: Codeine, Morphine and Related GENERAL ORDERS: Abdomen 1V Urgent (02:06 01/15/2017 Kan FITZGERALD) (2:30 ALawrence ER Tech1) UA-Culture if indicated Urgent (02:56 01/15/2017 Kan FITZGERALD) (3:07 DDavis R.N.) MEDICATION ORDERS: Toradol IM 60 mg (NOW) (02:05 01/15/2017 Kan FITZGERALD) (Ack 2:06 RCollier R.N.) (2:32 RCollier R.N.) IV FLUIDS: Dilaudid IV 1 mg (NOW) (03:03 01/15/2017 Kan FITZGERALD) (Ack 3:08 DDavis R.N.) (3:17 DDavis R.N.) Zofran IV 4 mg (NOW) (03:03 01/15/2017 Kan FITZGERALD) (Ack 3:08 DDavis R.N.) (3:18 DDavis R.N.) ORDER SHEET NOTES: [Electronically signed by Edwardo sAh R.N. (03:30 01/15/2017)] [Electronically signed by Vivek Blood MD (22:29 01/15/2017)] [Electronically locked/signed by Edwardo Ash R.N. (03:30 01/15/2017)]
--- NOTE | 2017-01-15 03:07 | ED NURSING NOTES ---
Clinical Report - Nurses Merged With [facility] [address] [place] [address] 01/14/2017 23:23 Patient: MEGHAN SABA TRIAGE Triage time 01:20. Acuity: LEVEL 3. Chief Complaint: NAUSEA (right sided flank pain). Alert. No acute distress. --: Marely Colon R.N. 01:20 01/15/17. BP: 159/88. HR: 98. RR: 15. O2 saturation: 99%. Temp: 98.6 F (oral). Pain level now: 05/06. --: Marely Colon R.N. Weight: 90.7 kg stated. Height/Length: 76 inches Per Patient. BMI: 24.3. --: Marely Colon R.N. Medications Nortriptyline HCl Oral 75 mg, daily. --: Marely Colon R.N. Penicillin V Potassium Oral, , dental abcess . --: Marely Colon R.N. Allergies Codeine. Definite Moderate(hives, itching) Morphine and Related. Definite Moderate(hives) --: Marely Colon R.N. History Arrived by private vehicle. Historian: patient. Accompanied by (dropped off by aunt). Primary physician (Urologist- Vicente). Onset. (about 2 days ago). 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 (last dose about 2hrs MECHANICAL DETAILER). PAST MEDICAL HX: Immunizations: up-to-date. SOCIAL HX: Heavy tobacco smoker (cigarette)- less than 1 pack per day. No alcohol use or drug use. --: Marely Colon R.N. ADDITIONAL SURGERIES: Circumcision. Inguinal Hernia Repair. Shoulder Surgery. --: Marely Colon R.N. Interventions ID band on patient. To treatment room. --: Marely Colon R.N. PHYSICAL ASSESSMENT Ambulatory to room. Patient gowned. GENERAL / NEURO / PSYCH: Alert. Oriented X 4. Appears in no acute distress. RESPIRATORY: Respirations not labored. CVS: Capillary refill less than 2 seconds. SKIN: Skin is warm and dry. --01:25 Marely Colon R.N. GI / : ( pt states having kidney stones fro >3 weeks, and being diagnosed with them here.). --01:35 Edwardo Ash R.N. ( he states that his flank "kidney stone pain" got too severe, and promoted him to come in tonight). --01:36 Edwardo Ash R.N. NURSING PROGRESS NOTES Head of bed elevated. Two patient identifiers checked. Call light placed in reach. Side rails up x 1. Bed placed in lowest position. Brakes of bed on. --01:26 Marely Colon R.N. ( pt unable to give urine at this time.). --01:26 Marely Colon R.N. Patient ID band checked for patient name and birthdate: patient confirmed urine collected with return of yellow-colored clear urine; sample sent to lab. Specimen labeled in the presence of the patient. --02:32 Marely Colon R.N. 01:25 01/15/2017 Site #1 started via IV in the left antecubital space with an 20g angiocath; one attempt. Blood drawn: rainbow set. Labeled in the presence of the patient and sent to the lab. Saline lock flushed with saline. --03:17 Edwardo Ash R.N. 02:32 01/15/2017 Toradol (Ketorolac Tromethamine) IM 60 mg given. Given in the right ventral gluteus and left ventral gluteus (split dose). Allergies verified and confirmed 5 rights. --02:32 Marely Colon R.N. 03:14 01/15/2017 Dilaudid (HYDROmorphone HCl PF) IVP 1 mg given over 2 minute(s) via site #1. Allergies verified, confirmed 5 rights and sedative warning given to the patient. IV patency established. IV site checked: no pain, redness, or swelling. IV flushed thoroughly pre- and post-medication administration. --03:17 Edwardo Ash R.N. 03:15 01/15/2017 Zofran (Ondansetron HCl) IVP 4 mg given over 1 minute(s) via site #1. Allergies verified and confirmed 5 rights. IV patency established. IV site checked: no pain, redness, or swelling. IV flushed thoroughly pre- and post-medication administration. --03:18 Edwardo Ash R.N. 03:24 01/15/2017 Site #1 removed upon discharge. Manual pressure and bandaid applied. --03:25 Edwardo Ash R.N. DISPOSITION / DISCHARGE Condition at departure: stable. Learning barriers present. Discharge instructions provided and reviewed with the patient. Reviewed warnings. Reviewed medication(s) side effects, precautions, dosing and course information. Prescription(s) given to the patient. Treatments reviewed. Reviewed referrals for followup. Patient verbalized understanding. Written instructions provided in Greenlandic. --03:22 Edwardo Ash R.N. The patient was discharged home and accompanied by family. He left the Emergency Department ambulatory and via private vehicle. Family member driving (Aunt of patient). ( Patient states that his Aunt is driving him home. he states understanding that he is not to attempt to drive or operate heavy machinery under the influence of the pain medications he's received tonight.). --03:24 Edwardo Ash R.N. Departure time: 03:24. --03:24 Edwardo Ash R.N. 03:00 01/15/17. BP: 151/90. HR: 93. RR: 20. O2 saturation: 97% on room air. --03:29 Edwardo Ash R.N. Locked/Released at 01/15/2017 3:30 by Edwardo Ash R.N.
--- NOTE | 2017-01-15 03:07 | ED ORDER SUMMARY ---
..... Patient: MEGHAN SABA OrderSheet [facility] VisitID: [id number] [address] [place] [address] 36y, M Registration Date/Time: 01/14/2017 ORDER SHEET Weight: 90.7 kg (stated) Allergies: Codeine, Morphine and Related GENERAL ORDERS: Abdomen 1V Urgent (02:06 01/15/2017 Kan FITZGERALD) (2:30 ALawrence ER Tech1) UA-Culture if indicated Urgent (02:56 01/15/2017 Kan FITZGERALD) (3:07 DDavis R.N.) MEDICATION ORDERS: Toradol IM 60 mg (NOW) (02:05 01/15/2017 Kan FITZGERALD) (Ack 2:06 RCollier R.N.) (2:32 RCollier R.N.) IV FLUIDS: Dilaudid IV 1 mg (NOW) (03:03 01/15/2017 Kan FITZGERALD) (Ack 3:08 DDavis R.N.) (3:17 DDavis R.N.) Zofran IV 4 mg (NOW) (03:03 01/15/2017 Kan FITZGERALD) (Ack 3:08 DDavis R.N.) (3:18 DDavis R.N.) ORDER SHEET NOTES: [Electronically signed by Edwardo Ash R.N. (03:30 01/15/2017)] [Electronically signed by Vivek Blood MD (22:29 01/15/2017)] [Electronically locked/signed by Edwardo Ash R.N. (03:30 01/15/2017)]
--- NOTE | 2017-01-15 03:07 | ED NURSING NOTES ---
Clinical Report - Nurses [facility] [address] [place] [address] 01/14/2017 23:23 Patient: MEGHAN SABA TRIAGE Triage time 01:20. Acuity: LEVEL 3. Chief Complaint: NAUSEA (right sided flank pain). Alert. No acute distress. --: Marely Colon R.N. 01:20 01/15/17. BP: 159/88. HR: 98. RR: 15. O2 saturation: 99%. Temp: 98.6 F (oral). Pain level now: 05/06. --: Marely Colon R.N. Weight: 90.7 kg stated. Height/Length: 76 inches Per Patient. BMI: 24.3. --: Marely Colon R.N. Medications Nortriptyline HCl Oral 75 mg, daily. --: Marely Cooln R.N. Penicillin V Potassium Oral, , dental abcess . --: Marely Colon R.N. Allergies Codeine. Definite Moderate(hives, itching) Morphine and Related. Definite Moderate(hives) --: Marely Colon R.N. History Arrived by private vehicle. Historian: patient. Accompanied by (dropped off by aunt). Primary physician (Urologist- Vicente). Onset. (about 2 days ago). 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 (last dose about 2hrs MISSION SUPPORT SPECIALIST). PAST MEDICAL HX: Immunizations: up-to-date. SOCIAL HX: Heavy tobacco smoker (cigarette)- less than 1 pack per day. No alcohol use or drug use. --: Marely Colon R.N. ADDITIONAL SURGERIES: Circumcision. Inguinal Hernia Repair. Shoulder Surgery. --: Marely Colon R.N. Interventions ID band on patient. To treatment room. --: Marely Colon R.N. PHYSICAL ASSESSMENT Ambulatory to room. Patient gowned. GENERAL / NEURO / PSYCH: Alert. Oriented X 4. Appears in no acute distress. RESPIRATORY: Respirations not labored. CVS: Capillary refill less than 2 seconds. SKIN: Skin is warm and dry. --01:25 Marely Colon R.N. GI / : ( pt states having kidney stones fro >3 weeks, and being diagnosed with them here.). --01:35 Edwardo Ash R.N. ( he states that his flank "kidney stone pain" got too severe, and promoted him to come in tonight). --01:36 Edwardo Ash R.N. NURSING PROGRESS NOTES Head of bed elevated. Two patient identifiers checked. Call light placed in reach. Side rails up x 1. Bed placed in lowest position. Brakes of bed on. --01:26 Marely Colon R.N. ( pt unable to give urine at this time.). --01:26 Marely Colon R.N. Patient ID band checked for patient name and birthdate: patient confirmed urine collected with return of yellow-colored clear urine; sample sent to lab. Specimen labeled in the presence of the patient. --02:32 Marely Colon R.N. 01:25 01/15/2017 Site #1 started via IV in the left antecubital space with an 20g angiocath; one attempt. Blood drawn: rainbow set. Labeled in the presence of the patient and sent to the lab. Saline lock flushed with saline. --03:17 Edwardo Ash R.N. 02:32 01/15/2017 Toradol (Ketorolac Tromethamine) IM 60 mg given. Given in the right ventral gluteus and left ventral gluteus (split dose). Allergies verified and confirmed 5 rights. --02:32 Marely Colon R.N. 03:14 01/15/2017 Dilaudid (HYDROmorphone HCl PF) IVP 1 mg given over 2 minute(s) via site #1. Allergies verified, confirmed 5 rights and sedative warning given to the patient. IV patency established. IV site checked: no pain, redness, or swelling. IV flushed thoroughly pre- and post-medication administration. --03:17 Edwardo Ash R.N. 03:15 01/15/2017 Zofran (Ondansetron HCl) IVP 4 mg given over 1 minute(s) via site #1. Allergies verified and confirmed 5 rights. IV patency established. IV site checked: no pain, redness, or swelling. IV flushed thoroughly pre- and post-medication administration. --03:18 Edwardo Ash R.N. 03:24 01/15/2017 Site #1 removed upon discharge. Manual pressure and bandaid applied. --03:25 Edwardo Ash R.N. DISPOSITION / DISCHARGE Condition at departure: stable. Learning barriers present. Discharge instructions provided and reviewed with the patient. Reviewed warnings. Reviewed medication(s) side effects, precautions, dosing and course information. Prescription(s) given to the patient. Treatments reviewed. Reviewed referrals for followup. Patient verbalized understanding. Written instructions provided in Amharic. --03:22 Edwardo Ash R.N. The patient was discharged home and accompanied by family. He left the Emergency Department ambulatory and via private vehicle. Family member driving (Aunt of patient). ( Patient states that his Aunt is driving him home. he states understanding that he is not to attempt to drive or operate heavy machinery under the influence of the pain medications he's received tonight.). --03:24 Edwardo Ash R.N. Departure time: 03:24. --03:24 Edwardo Ash R.N. 03:00 01/15/17. BP: 151/90. HR: 93. RR: 20. O2 saturation: 97% on room air. --03:29 Edwardo Ash R.N. Locked/Released at 01/15/2017 3:30 by Edwardo Ash R.N.
--- NOTE | 2017-01-15 08:05 | DIAGNOSTIC IMAGING REPORT ---
PROCEDURE: XR ABDOMEN 1 VIEW INDICATION: R FLANK PAIN TECHNIQUE: Single view supine abdomen. COMPARISON: CT 10/16/2016 FINDINGS: No free intraperitoneal air. Nonspecific, nonobstructive bowel gas pattern. No suspicious mass, mass effect, or calcifications. The visible osseous structures are intact. IMPRESSION: 1. Normal single view abdomen. 2. Specifically, no visible urinary calculi.
--- NOTE | 2017-01-15 22:29 | ED MED RECONCILIATION SUMMARY ---
Patient: MEGHAN SABA Medication Reconciliation Report [facility] VisitID: [id number] [place] [address] 36y, M Registration Date/Time: 01/14/2017 Weight: 90.7 kg Height/Length: 76 in. BMI: 24.3 ALLERGIES: Codeine, Morphine and Related The patient's Home Medications are listed below: THE FOLLOWING MEDICATIONS NEED TO BE RECONCILED: Nortriptyline HCl Oral 75 mg, daily Penicillin V Potassium Oral, dental abcess The source(s) of the original Home Medication information: Not obtained. The following Medications were given to the patient in the Emergency Department: Toradol [IM] IM 60 mg, administered: 01/15/2017 2:32:00 AM Dilaudid [IVP] IVP 1 mg, administered: 01/15/2017 3:14:00 AM Zofran [IVP] IVP 4 mg, administered: 01/15/2017 3:15:00 AM The following Medications were prescribed to the patient: Oxycodone/APAP 5 mg/325 mg: take 1-2 tablets orally every 4 hours as needed for pain. Dispense fifteen (15). No refill. -- Vivek Blood MD Flomax 0.4 mg: take 1 orally every 24 hours. Dispense fifteen (15). No refills. Substitution is permissible. -- Vivek Blood MD
--- NOTE | 2017-01-15 22:29 | ED MAR SUMMARY ---
..... Medication Administration Record [facility] [address] [address] Patient: MEGHAN SABA Visit ID: [id number] 36y, M Weight: 90.7 kg Height/Length: 76 in BMI: 24.3 ALLERGIES: Codeine, Morphine and Related Given 02:32 01/15/2017 Marely Colon R.N. Medication Administered: TORADOL [IM] (KETOROLAC TROMETHAMINE), Dose: 60 mg IM. Medication Ordered: Toradol IM 60 mg (NOW). Given 03:14 01/15/2017 Edwardo Ash R.N. Medication Administered: DILAUDID [IVP] (HYDROMORPHONE HCL PF), Dose: 1 mg IVP over 2 minute(s), Site: #1 left AC. Medication Ordered: Dilaudid IV 1 mg (NOW). Given 03:15 01/15/2017 Edwardo Ash R.N. Medication Administered: ZOFRAN [IVP] (ONDANSETRON HCL), Dose: 4 mg IVP over 1 minute(s), Site: #1 left AC. Medication Ordered: Zofran IV 4 mg (NOW).
--- NOTE | 2017-01-15 22:29 | ED DISCHARGE INSTRUCTIONS ---
Patient: MEGHAN SABA General Instructions [facility] VisitID: [id number] [place] [address] 36y, M Registration Date/Time: 01/14/2017 Back pain. INSTRUCTIONS (I DID NOT SEE ANY LARGE R SIDED STONE I AM NOT SURE THAT THIS IS A KIDNEY STONE IMMEDIATE RECHECK FOR UNCONTROLLED PAIN OF TEMP OVER 100 TAKE IBUPROFEN OR SIMILAR ON A SCHEDULE KEEP YOUR APPOINTMENT WITH DR DONAHUE.). Prescription Medications: Oxycodone/APAP 5 mg/325 mg: take 1-2 tablets orally every 4 hours as needed for pain. Dispense fifteen (15). No refill. Flomax 0.4 mg: take 1 orally every 24 hours. Dispense fifteen (15). No refills. Substitution is permissible. ADDITIONAL INFORMATION Kidney Stone (W/ Colic) The sharp cramping pain and nausea/vomiting that you have is due to a small stone which has formed in the kidney and is now passing down a narrow tube (ureter) on its way to your bladder. Once it reaches your bladder, the pain will stop. The stone may pass in your urine stream in one piece. [The size may be 1/16" to 1/4" (1-6mm)]. Or, the stone may also break up into aaliyah fragments which you may not even notice. Once you have had a kidney stone, you are at risk for developing another one in the future. Home Care: Drink plenty of fluids (at least 8 to 10 glasses of water a day). Most stones will pass on their own, but may take from a few hours to a few days. Sometimes the stone is too large to pass by itself and special methods will have to be used to remove the stone. Each time you urinate, do so in a jar. Pour the urine from the jar through the strainer and into the toilet. Continue doing this until 24 hours after your pain stops. By then, if there was a kidney stone, it should pass from your bladder. Some stones dissolve into sand-like particles and pass right through the strainer. In that case, you wont ever see a stone. Save any stone that you find in the strainer and bring it to your doctor for analysis. It may be possible to prevent certain types of stones from forming. Therefore, it is important to know what kind of stone you have. Try to stay as active as possible since this will help the stone pass. Do not stay in bed unless your pain prevents you from getting up. You may notice a red, pink or brown color to your urine. This is normal while passing a kidney stone. Follow Up with your doctor or return to this facility if the pain lasts more than 48 hours. Get Prompt Medical Attention if any of the following occur: Pain that is not controlled by the medicine given Repeated vomiting or unable to keep down fluids Weakness, dizziness or fainting Fever of 100.4F (38C) or higher, or as directed by your healthcare provider Passage of solid red or brown urine (can't see through it) or urine with lots of blood clots Unable to pass urine for 8 hours and increasing bladder pressure Oxycodone Hydrochloride, Acetaminophen Oral tablet What is this medicine? ACETAMINOPHEN; OXYCODONE (a set a MADDISON raj fen; ox i KOE done) is a pain reliever. It is used to treat mild to moderate pain. How should I use this medicine? Take this medicine by mouth with a full glass of water. Follow the directions on the prescription label. Take your medicine at regular intervals. Do not take your medicine more often than directed. Talk to your lens polisher regarding the use of this medicine in children. Special care may be needed. Patients over 65 years old may have a stronger reaction and need a smaller dose. What side effects may I notice from receiving this medicine? Side effects that you should report to your doctor or health day care home provider as soon as possible: allergic reactions like skin rash, itching or hives, swelling of the face, lips, or tongue breathing difficulties, wheezing confusion light headedness or fainting spells severe stomach pain yellowing of the skin or the whites of the eyes Side effects that usually do not require medical attention (report to your doctor or health day care home provider if they continue or are bothersome): dizziness drowsiness nausea vomiting What may interact with this medicine? alcohol antihistamines barbiturates like amobarbital, butalbital, butabarbital, methohexital, pentobarbital, phenobarbital, thiopental, and secobarbital benztropine drugs for bladder problems like solifenacin, trospium, oxybutynin, tolterodine, hyoscyamine, and methscopolamine drugs for breathing problems like ipratropium and tiotropium drugs for certain stomach or intestine problems like propantheline, homatropine methylbromide, glycopyrrolate, atropine, belladonna, and dicyclomine general anesthetics like etomidate, ketamine, nitrous oxide, propofol, desflurane, enflurane, halothane, isoflurane, and sevoflurane medicines for depression, anxiety, or psychotic disturbances medicines for sleep muscle relaxants naltrexone narcotic medicines (opiates) for pain phenothiazines like perphenazine, thioridazine, chlorpromazine, mesoridazine, fluphenazine, prochlorperazine, promazine, and trifluoperazine scopolamine tramadol trihexyphenidyl What if I miss a dose? If you miss a dose, take it as soon as you can. If it is almost time for your next dose, take only that dose. Do not take double or extra doses. Where should I keep my medicine? Keep out of the reach of children. This medicine can be abused. Keep your medicine in a safe place to protect it from theft. Do not share this medicine with anyone. Selling or giving away this medicine is dangerous and against the law. Store at room temperature between 20 and 25 degrees C (68 and 77 degrees F). Keep container tightly closed. Protect from light. This medicine may cause accidental overdose and if it is taken by other adults, children, or pets. Flush any unused medicine down the toilet to reduce the chance of harm. Do not use the medicine after the expiration date. What should I tell my health care provider before I take this medicine? They need to know if you have any of these conditions: brain tumor Crohn's disease, inflammatory bowel disease, or ulcerative colitis drink more than 3 alcohol containing drinks per day drug abuse or addiction head injury heart or circulation problems kidney disease or problems going to the bathroom liver disease lung disease, asthma, or breathing problems an unusual or allergic reaction to acetaminophen, oxycodone, other opioid analgesics, other medicines, foods, dyes, or preservatives or trying to get breast-feeding What should I watch for while using this medicine? Tell your doctor or health day care home provider if your pain does not go away, if it gets worse, or if you have new or a different type of pain. You may develop tolerance to the medicine. Tolerance means that you will need a higher dose of the medication for pain relief. Tolerance is normal and is expected if you take this medicine for a long time. Do not suddenly stop taking your medicine because you may develop a severe reaction. Your body becomes used to the medicine. This does NOT mean you are addicted. Addiction is a behavior related to getting and using a drug for a non-medical reason. If you have pain, you have a medical reason to take pain medicine. Your doctor will tell you how much medicine to take. If your doctor wants you to stop the medicine, the dose will be slowly lowered over time to avoid any side effects. You may get drowsy or dizzy. Do not drive, use machinery, or do anything that needs mental alertness until you know how this medicine affects you. Do not stand or sit up quickly, especially if you are an older patient. This reduces the risk of dizzy or fainting spells. Alcohol may interfere with the effect of this medicine. Avoid alcoholic drinks. There are different types of narcotic medicines (opiates) for pain. If you take more than one type at the same time, you may have more side effects. Give your health care provider a list of all medicines you use. Your doctor will tell you how much medicine to take. Do not take more medicine than directed. Call emergency for help if you have problems breathing. The medicine will cause constipation. Try to have a bowel movement at least every 2 to 3 days. If you do not have a bowel movement for 3 days, call your doctor or health day care home provider. Do not take Tylenol (acetaminophen) or medicines that have acetaminophen with this medicine. Too much acetaminophen can be very dangerous. Many nonprescription medicines contain acetaminophen. Always read the labels carefully to avoid taking more acetaminophen. You have been given the following additional information: Kidney Stone W/ Colic Oxycodone Hydrochloride, Acetaminophen Oral tablet (Electronically signed by Vivek Blood MD 01/15/2017 22:29)
--- NOTE | 2017-01-15 22:29 | ED MAR SUMMARY ---
..... Medication Administration [facility] [address] [place] [address] Patient: MEGHAN SABA Visit ID: [id number] 36y, M Weight: 90.7 kg Height/Length: 76 in BMI: 24.3 ALLERGIES: Codeine, Morphine and Related Given 02:32 01/15/2017 Marely Colon R.N. Medication Administered: TORADOL [IM] (KETOROLAC TROMETHAMINE), Dose: 60 mg IM. Medication Ordered: Toradol IM 60 mg (NOW). Given 03:14 01/15/2017 Edwardo Ash R.N. Medication Administered: DILAUDID [IVP] (HYDROMORPHONE HCL PF), Dose: 1 mg IVP over 2 minute(s), Site: #1 left AC. Medication Ordered: Dilaudid IV 1 mg (NOW). Given 03:15 01/15/2017 Edwardo Ash R.N. Medication Administered: ZOFRAN [IVP] (ONDANSETRON HCL), Dose: 4 mg IVP over 1 minute(s), Site: #1 left AC. Medication Ordered: Zofran IV 4 mg (NOW).
--- NOTE | 2017-01-15 22:29 | ED MED RECONCILIATION SUMMARY ---
Patient: MEGHAN SABA Medication Reconciliation Report [facility] VisitID: [id number] [place] [address] 36y, M Registration Date/Time: 01/14/2017 Weight: 90.7 kg Height/Length: 76 in. BMI: 24.3 ALLERGIES: Codeine, Morphine and Related The patient's Home Medications are listed below: THE FOLLOWING MEDICATIONS NEED TO BE RECONCILED: Nortriptyline HCl Oral 75 mg, daily Penicillin V Potassium Oral, dental abcess The source(s) of the original Home Medication information: Not obtained. The following Medications were given to the patient in the Emergency Department: Toradol [IM] IM 60 mg, administered: 01/15/2017 2:32:00 AM Dilaudid [IVP] IVP 1 mg, administered: 01/15/2017 3:14:00 AM Zofran [IVP] IVP 4 mg, administered: 01/15/2017 3:15:00 AM The following Medications were prescribed to the patient: Oxycodone/APAP 5 mg/325 mg: take 1-2 tablets orally every 4 hours as needed for pain. Dispense fifteen (15). No refill. -- Vivek Blood MD Flomax 0.4 mg: take 1 orally every 24 hours. Dispense fifteen (15). No refills. Substitution is permissible. -- Vivek Blood MD
== END 2017-01-15 03:24 | disposition home or self-care (01) ==
LOC: ED SRH 23:23
DX: M54.9 Dorsalgia, unspecified (principal); Z87.442 Personal history of urinary calculi
CPT/HCPCS: 90004

== ENCOUNTER 2017-04-03 17:48 | Emergency (ER) | payer OTHER ==
--- NOTE | 2017-04-03 18:22 | ED CLINICAL REPORT ---
Clinical Report - Physicians/Mid Levels [facility] [address] [place] [address] 04/03/2017 17:48 Patient: MEGHAN SABA Time Seen: 17:52; initial patient contact, initial documentation, patient care assumed. Arrived- By private vehicle. Historian- patient. HISTORY OF PRESENT ILLNESS Chief Complaint: DENTAL PAIN. This started about 1 weeks ago and is still present. Pain described as severe. No sore throat, mouth sores, nasal discharge or congestion or ear pain. He has had severe toothache involving a single tooth (right upper molar). Similar symptoms previously: Occasionally, milder. Recent medical care: The patient was seen recently at another facility in the emergency department and office. ( tooth pulled x1 wk ago, [facility] and pain meds, still hurts, f/u with dentist is next week). REVIEW OF SYSTEMS No fever or difficulty breathing. All systems otherwise negative, except as recorded above. PAST HISTORY See nurses notes. PROBLEMS: Dental Pain. Post-Op Complications. Hypertension. Abdominal Pain. Weakness. Nausea. Rotator Cuff Injury. Shoulder Injury. --17:57 Susie Gant R.N. Renal Colic [RuleOut]. Back Pain [RuleOut]. --17:57 Susie Gant R.N. ADDITIONAL SURGERIES: Circumcision. Inguinal Hernia Repair. Shoulder Surgery. --17:57 Susie Gant R.N. SOCIAL HISTORY Heavy tobacco smoker. No alcohol use or drug use. No recent travel. Is a local resident. FAMILY HISTORY Negative. ADDITIONAL NOTES The nursing notes have been reviewed with agreement regarding the chief complaint, HPI, ROS, PMH and patient medications and allergies. PHYSICAL EXAM Vital Signs: 04/03/2017 17:52 BP: 158/93. HR: 100. RR: 18. O2 saturation: 99%. Temp: 99.2 F. Pain level now: 10/10. Have been reviewed as abnormal and appear to be correct. Hypertensive. Heart rate normal. Respiratory rate normal. Temperature normal. Oxygen saturation normal. Appearance: Alert. No acute distress. Head: Normal external inspection. Eyes: Pupils equal, round and reactive to light. Conjunctivae and eyelids normal. ENT: Ears normal. Nose normal. Pharynx normal. Lips normal. Gums normal. No trismus present. Uvula midline. (molar 2 extraction site clear, no dc, no swelling, no erythema). Neck: Normal inspection. Trachea midline. No adenopathy. Thyroid normal. Neck supple. Respiratory: No respiratory distress. Skin: Normal skin color. No rash. Normal skin turgor. Extremities: Extremities exhibit normal ROM. Extremities nontender. Neuro: Oriented X 3. No motor deficit. No sensory deficit. PROGRESS AND PROCEDURES Course of Care: pt admits to [facility], and getting percocet, says those are not working, admits to getting vicoden from dentist, says those didn't work, wants something else, pt is maxed out here on narcotics and controlled substances per policy, informed of policy, agreed to give him what I could, offered dental block, pt declined, offered topical rx, pt upset telling me that he was being treated as drug seeker, explained that was not the case, and I was willing to give him what I could but if he had rx already for vicoden and percocet there wasn't much else we could rx that would be stronger, encouraged him to try dental wax or packing of some kind in case he had dry socket. Patient counseled in person regarding the patient's stable condition and diagnosis. Differential Diagnosis: Other possible considerations: substance abuse, dental pain, abscess. Above considerations are based on history and physical exam. Differential diagnosis was discussed with patient. Disposition: Discharged home in good and unchanged condition (18:22). Condition: good and stable. CLINICAL IMPRESSION Severe dental pain. INSTRUCTIONS (may also try dental wax). Warnings: GENERAL WARNINGS: Return or contact your physician immediately if your condition worsens or changes unexpectedly, if not improving as expected, or if other problems arise. Specifically return if problem worsens. Prescription Medications: Viscous 2% Lidocaine 30 mL, Maalox 30 mL and Diphenhydramine (12.5 mL/5 mL) 30 mL. Swish, gargle, and spit 1-2 teaspoons every 6 hours as needed. Dispense ninety (90) mL. No refills Follow-up: Follow up with a dentist tomorrow even if well. Call for an appointment. Summary of care provided to patient. Screening today revealed the patient's blood pressure to be in the hypertensive range. The patient should follow up with a primary care provider for blood pressure management. Understanding of the discharge instructions verbalized by patient. (Electronically signed by Ewelina Dey A.R.N.P. 04/03/2017 19:54)
--- NOTE | 2017-04-03 18:22 | ED NURSING NOTES ---
Clinical Report - Nurses [facility] [address] [place] [address] 04/03/2017 17:48 Patient: MEGHAN SABA TRIAGE Triage time 17:52 Apr 03 2017. Chief Complaint: RIGHT UPPER TOOTHACHE and (pt had tooth pulled a week ago, has had it packed, [facility] was put on pain meds and atbx, pt reports pain is "out of control"). Alert. SEPSIS SCREEN: Sepsis Screen: negative. Infection suspected/documented. Heart rate greater than 90. --17:59 Susie Gant R.N. 17:52 04/03/17. BP: 158/93. HR: 100. RR: 18. O2 saturation: 99%. Temp: 99.2 F. Pain level now: 08/06. --17:59 Susie Gant R.N. Weight: 90.7 kg stated. Height/Length: 76 inches Per Patient. BMI: 24.3. --17:57 Susie Gant R.N. Medications Nortriptyline HCl Oral 75 mg, daily. Penicillin V Potassium Oral, , dental abcess . --17:57 Susie Gant R.N. Medication/allergy information source: the patient. --17:59 Susie Gant R.N. Allergies Codeine. Definite Moderate(hives, itching) Morphine and Related. Definite Moderate(hives) --17:57 Susie Gant R.N. History Arrived by private vehicle. Historian: patient. The patient has a dental appointment scheduled ([facility] amilcar Baumann f/louie next week). PAST MEDICAL HX: Immunizations: up-to-date. SOCIAL HX: Heavy tobacco smoker- 1 pack per day. No alcohol use or drug use. No infectious disease exposure. ABUSE ASSESSMENT: No report of abuse. SELF HARM ASSESSMENT: A self harm assessment was performed. The patient answered "no" to the question "Do you have thoughts of harming or killing yourself?". FALL RISK ASSESSMENT: Fall risk assessment completed. No fall risk identified. NUTRITIONAL RISK ASSESSMENT: The nutritional risk assessment revealed no deficiencies. FUNCTIONAL ASSESSMENT: Functional assessment: no impairments noted. LEARNING NEEDS ASSESSMENT: The learning needs assessment revealed no barriers. SKIN INTEGRITY ASSESSMENT: Skin integrity risk assessment completed. No skin integrity risk identified. --17:59 Susie Gant R.N. PROBLEMS: Dental Pain. Post-Op Complications. Hypertension. Abdominal Pain. Weakness. Nausea. Rotator Cuff Injury. Shoulder Injury. --17:57 Susie Gant R.N. Renal Colic [RuleOut]. Back Pain [RuleOut]. --17:57 Susie Gant R.N. ADDITIONAL SURGERIES: Circumcision. Inguinal Hernia Repair. Shoulder Surgery. --17:57 Susie Gant R.N. Interventions ID and allergy band on patient. --17:59 PageSusie Whyte R.N. PHYSICAL ASSESSMENT Ambulatory to room. GENERAL / NEURO / PSYCH: Alert. Oriented X 4. Appears in pain. HEENT: Pupils equal, round and reactive to light. RESPIRATORY: Respirations not labored. CVS: Capillary refill less than 2 seconds. SKIN: Skin is warm and dry. Normal skin turgor. --17:59 PageSusie Whyte R.Sultana. NURSING PROGRESS NOTES Patient identifiers checked. Call light placed in reach. Side rails up x 1. Bed placed in lowest position. Brakes of bed on. Patient ready for evaluation- chart flagged. Patient waiting for evaluation. --17:59 PageSusie Whyte R.N. DISPOSITION / DISCHARGE No learning barriers present. Discharge instructions provided and reviewed with the patient. Reviewed medication(s) dosing and course information. Prescription(s) given to the patient. Reviewed need to stop smoking (pt encouraged to stop smoking). Patient verbalized understanding. Written instructions provided in Jamaican. The patient was discharged by the nurse practitioner. He was discharged home. He left the Emergency Department ambulatory and via private vehicle. Patient driving. ( pt upon dispo "I'm going to be out of my percocet tomorrow, they only gave me 15" pt enc to contact his dentist in the morning and cont his meds as directed). --18:49 Susie Gant R.N. 18:47 04/03/17. BP: 141/87. HR: 96. RR: 17. O2 saturation: 100%. Temp: deferred. Pain level now: 08/06. --18:49 Susie Gant R.N. Locked/Released at 04/03/2017 22:38 by Susie Gant R.N.
--- NOTE | 2017-04-03 18:22 | ED NURSING NOTES ---
Clinical Report - Nurses [facility] [address] [place] [address] 04/03/2017 17:48 Patient: MEGHAN SABA TRIAGE Triage time 17:52 Apr 03 2017. Chief Complaint: RIGHT UPPER TOOTHACHE and (pt had tooth pulled a week ago, has had it packed, [facility] was put on pain meds and atbx, pt reports pain is "out of control"). Alert. SEPSIS SCREEN: Sepsis Screen: negative. Infection suspected/documented. Heart rate greater than 90. --17:59 Susie Gant R.N. 17:52 04/03/17. BP: 158/93. HR: 100. RR: 18. O2 saturation: 99%. Temp: 99.2 F. Pain level now: 08/06. --17:59 Susie Gant R.N. Weight: 90.7 kg stated. Height/Length: 76 inches Per Patient. BMI: 24.3. --17:57 Susie Gant R.N. Medications Nortriptyline HCl Oral 75 mg, daily. Penicillin V Potassium Oral, , dental abcess . --17:57 Susie Gant R.N. Medication/allergy information source: the patient. --17:59 Susie Gant R.N. Allergies Codeine. Definite Moderate(hives, itching) Morphine and Related. Definite Moderate(hives) --17:57 Susie Gant R.N. History Arrived by private vehicle. Historian: patient. The patient has a dental appointment scheduled ([facility] amilcar Baumann f/[place]ie next week). PAST MEDICAL HX: Immunizations: up-to-date. SOCIAL HX: Heavy tobacco smoker- 1 pack per day. No alcohol use or drug use. No infectious disease exposure. ABUSE ASSESSMENT: No report of abuse. SELF HARM ASSESSMENT: A self harm assessment was performed. The patient answered "no" to the question "Do you have thoughts of harming or killing yourself?". FALL RISK ASSESSMENT: Fall risk assessment completed. No fall risk identified. NUTRITIONAL RISK ASSESSMENT: The nutritional risk assessment revealed no deficiencies. FUNCTIONAL ASSESSMENT: Functional assessment: no impairments noted. LEARNING NEEDS ASSESSMENT: The learning needs assessment revealed no barriers. SKIN INTEGRITY ASSESSMENT: Skin integrity risk assessment completed. No skin integrity risk identified. --17:59 Susie Gant R.N. PROBLEMS: Dental Pain. Post-Op Complications. Hypertension. Abdominal Pain. Weakness. Nausea. Rotator Cuff Injury. Shoulder Injury. --17:57 Susie Gant R.N. Renal Colic [RuleOut]. Back Pain [RuleOut]. --17:57 Susie Gant R.N. ADDITIONAL SURGERIES: Circumcision. Inguinal Hernia Repair. Shoulder Surgery. --17:57 Susie Gant R.N. Interventions ID and allergy band on patient. --17:59 PageSusie Whyte R.N. PHYSICAL ASSESSMENT Ambulatory to room. GENERAL / NEURO / PSYCH: Alert. Oriented X 4. Appears in pain. HEENT: Pupils equal, round and reactive to light. RESPIRATORY: Respirations not labored. CVS: Capillary refill less than 2 seconds. SKIN: Skin is warm and dry. Normal skin turgor. --17:59 PageSusie Whyte R.Sultana. NURSING PROGRESS NOTES Patient identifiers checked. Call light placed in reach. Side rails up x 1. Bed placed in lowest position. Brakes of bed on. Patient ready for evaluation- chart flagged. Patient waiting for evaluation. --17:59 PageSusie Whyte R.N. DISPOSITION / DISCHARGE No learning barriers present. Discharge instructions provided and reviewed with the patient. Reviewed medication(s) dosing and course information. Prescription(s) given to the patient. Reviewed need to stop smoking (pt encouraged to stop smoking). Patient verbalized understanding. Written instructions provided in Qatari. The patient was discharged by the nurse practitioner. He was discharged home. He left the Emergency Department ambulatory and via private vehicle. Patient driving. ( pt upon dispo "I'm going to be out of my percocet tomorrow, they only gave me 15" pt enc to contact his dentist in the morning and cont his meds as directed). --18:49 Susie Gant R.N. 18:47 04/03/17. BP: 141/87. HR: 96. RR: 17. O2 saturation: 100%. Temp: deferred. Pain level now: 08/06. --18:49 Susie Gant R.N. Locked/Released at 04/03/2017 22:38 by Susie Gant R.N.
--- NOTE | 2017-04-03 22:38 | ED MED RECONCILIATION SUMMARY ---
Patient: MEGHAN SABA Medication Reconciliation Report [facility] VisitID: [id number] [address] [place] [address] 36y, M Registration Date/Time: 04/03/2017 Weight: 90.7 kg Height/Length: 76 in. BMI: 24.3 ALLERGIES: Codeine, Morphine and Related The patient's Home Medications are listed below: THE FOLLOWING MEDICATIONS NEED TO BE RECONCILED: Nortriptyline HCl Oral 75 mg, daily Penicillin V Potassium Oral, dental abcess The source(s) of the original Home Medication information: patient The following Medications were given to the patient in the Emergency Department: None. The following Medications were prescribed to the patient: Viscous 2% Lidocaine 30 mL, Maalox 30 mL and Diphenhydramine (12.5 mL/5 mL) 30 mL. Swish, gargle, and spit 1-2 teaspoons every 6 hours as needed. Dispense ninety (90) mL. No refills -- Ewelina Dey A.R.N.P.
--- NOTE | 2017-04-03 22:38 | ED MAR SUMMARY ---
..... Medication Administration Record [facility] [address] [place], [place] [id number] Patient: MEGHAN SABA Visit ID: [id number] 36y, M Weight: 90.7 kg Height/Length: 76 in BMI: 24.3 ALLERGIES: Codeine, Morphine and Related
--- NOTE | 2017-04-03 22:38 | ED DISCHARGE INSTRUCTIONS ---
Patient: MEGHAN SABA General Instructions [facility] VisitID: [id number] [place] [address] 36y, M Registration Date/Time: 04/03/2017 Severe dental pain. INSTRUCTIONS (may also try dental wax). Warnings: GENERAL WARNINGS: Return or contact your physician immediately if your condition worsens or changes unexpectedly, if not improving as expected, or if other problems arise. Specifically return if problem worsens. Prescription Medications: Viscous 2% Lidocaine 30 mL, Maalox 30 mL and Diphenhydramine (12.5 mL/5 mL) 30 mL. Swish, gargle, and spit 1-2 teaspoons every 6 hours as needed. Dispense ninety (90) mL. No refills Follow-up: Follow up with a dentist tomorrow even if well. Call for an appointment. Summary of care provided to patient. Screening today revealed the patient's blood pressure to be in the hypertensive range. The patient should follow up with a primary care provider for blood pressure management. Understanding of the discharge instructions verbalized by patient. ADDITIONAL INFORMATION Dental Pain A crack or cavity in the tooth, which exposes the sensitive inner area of the tooth can cause tooth pain. An infection in the gum or the root of the tooth can cause pain and swelling. The pain is often made worse by drinking hot or cold fluids, or biting on hard foods. Pain may spread from the tooth to the ear or jaw on the same side. Home Care: Avoid hot and cold foods and liquids since your tooth may be sensitive to temperature changes. If your tooth is chipped or cracked, or if there is a large open cavity, apply OIL OF CLOVES (available ovwz-vsg-aghxaqz in drug stores) directly to the tooth to reduce pain. Some pharmacies carry an hxgr-rvw-umoxyqg "toothache kit." This contains a paste, which can be applied over the exposed tooth to decrease sensitivity. A cold pack on your jaw over the sore area may help reduce pain. You may use acetaminophen (Tylenol) or ibuprofen (Motrin, Advil) to control pain, unless another medicine was prescribed. [ NOTE: If you have chronic liver or kidney disease or ever had a stomach ulcer or GI bleeding, talk with your doctor before using these medicines.] If you have signs of an infection, an antibiotic will be given. Take it as directed. Follow-Up as directed with a dentist. Your pain may go away with the treatment given. However, only a dentist can fully evaluate and treat the cause and prevent the pain from coming back again. TOOTHACHE IS A SIGN OF DISEASE IN YOUR TOOTH AND SHOULD BE EXAMINED AND TREATED BY A DENTIST. Get Prompt Medical Attention if any of the following occur: Your face becomes swollen or red Pain worsens or spreads to the neck Fever over 100.4 F (38.0 C) Unusual drowsiness; headache or stiff neck; weakness or fainting Pus drains from the tooth Difficulty swallowing or breathing You have been given the following additional information: Dental Pain (Electronically signed by Ewelina Dey A.R.N.P. 04/03/2017 19:54)
--- NOTE | 2017-04-03 22:38 | ED MAR SUMMARY ---
..... Medication Administration Record [facility] [address] [place], [place] [id number] Patient: MEGHAN SABA Visit ID: [id number] 36y, M Weight: 90.7 kg Height/Length: 76 in BMI: 24.3 ALLERGIES: Codeine, Morphine and Related
--- NOTE | 2017-04-03 22:38 | ED DISCHARGE INSTRUCTIONS ---
Patient: MEGHAN SABA General Instructions [facility] VisitID: [id number] [place] [address] 36y, M Registration Date/Time: 04/03/2017 Severe dental pain. INSTRUCTIONS (may also try dental wax). Warnings: GENERAL WARNINGS: Return or contact your physician immediately if your condition worsens or changes unexpectedly, if not improving as expected, or if other problems arise. Specifically return if problem worsens. Prescription Medications: Viscous 2% Lidocaine 30 mL, Maalox 30 mL and Diphenhydramine (12.5 mL/5 mL) 30 mL. Swish, gargle, and spit 1-2 teaspoons every 6 hours as needed. Dispense ninety (90) mL. No refills Follow-up: Follow up with a dentist tomorrow even if well. Call for an appointment. Summary of care provided to patient. Screening today revealed the patient's blood pressure to be in the hypertensive range. The patient should follow up with a primary care provider for blood pressure management. Understanding of the discharge instructions verbalized by patient. ADDITIONAL INFORMATION Dental Pain A crack or cavity in the tooth, which exposes the sensitive inner area of the tooth can cause tooth pain. An infection in the gum or the root of the tooth can cause pain and swelling. The pain is often made worse by drinking hot or cold fluids, or biting on hard foods. Pain may spread from the tooth to the ear or jaw on the same side. Home Care: Avoid hot and cold foods and liquids since your tooth may be sensitive to temperature changes. If your tooth is chipped or cracked, or if there is a large open cavity, apply OIL OF CLOVES (available nrlc-gpv-hzlgtpd in drug stores) directly to the tooth to reduce pain. Some pharmacies carry an [id number]-dbwvkcb "toothache kit." This contains a paste, which can be applied over the exposed tooth to decrease sensitivity. A cold pack on your jaw over the sore area may help reduce pain. You may use acetaminophen (Tylenol) or ibuprofen (Motrin, Advil) to control pain, unless another medicine was prescribed. [ NOTE: If you have chronic liver or kidney disease or ever had a stomach ulcer or GI bleeding, talk with your doctor before using these medicines.] If you have signs of an infection, an antibiotic will be given. Take it as directed. Follow-Up as directed with a dentist. Your pain may go away with the treatment given. However, only a dentist can fully evaluate and treat the cause and prevent the pain from coming back again. TOOTHACHE IS A SIGN OF DISEASE IN YOUR TOOTH AND SHOULD BE EXAMINED AND TREATED BY A DENTIST. Get Prompt Medical Attention if any of the following occur: Your face becomes swollen or red Pain worsens or spreads to the neck Fever over 100.4 F (38.0 C) Unusual drowsiness; headache or stiff neck; weakness or fainting Pus drains from the tooth Difficulty swallowing or breathing You have been given the following additional information: Dental Pain (Electronically signed by Ewelina Dey A.R.N.P. 04/03/2017 19:54)
--- NOTE | 2017-04-03 22:38 | ED MED RECONCILIATION SUMMARY ---
Patient: MEGHAN SABA Medication Reconciliation Report [facility] VisitID: [id number] [address] [place] [address] 36y, M Registration Date/Time: 04/03/2017 Weight: 90.7 kg Height/Length: 76 in. BMI: 24.3 ALLERGIES: Codeine, Morphine and Related The patient's Home Medications are listed below: THE FOLLOWING MEDICATIONS NEED TO BE RECONCILED: Nortriptyline HCl Oral 75 mg, daily Penicillin V Potassium Oral, dental abcess The source(s) of the original Home Medication information: patient The following Medications were given to the patient in the Emergency Department: None. The following Medications were prescribed to the patient: Viscous 2% Lidocaine 30 mL, Maalox 30 mL and Diphenhydramine (12.5 mL/5 mL) 30 mL. Swish, gargle, and spit 1-2 teaspoons every 6 hours as needed. Dispense ninety (90) mL. No refills -- Ewelina Dey A.R.N.P.
== END 2017-04-03 18:31 | disposition home or self-care (01) ==
LOC: ED SRH 17:48
DX: K08.89 Other specified disorders of teeth and supporting structures (principal); I10 Essential (primary) hypertension; F17.210 Nicotine dependence, cigarettes, uncomplicated